=== PATIENT | female | born 1975 | race Caucasian/White ===

== ENCOUNTER → 2016-12-19 | Outpatient (CLI) | payer BC ==
--- NOTE | 2016-12-19 10:36 | ECHOF ---
Referral Reason:R00.0 tachycardia MEASUREMENTS -------- HEIGHT: 170.2 cm WEIGHT: 142.0 kg BP: 126/71 IVSd: 1.5 cm (0.6 - 1.1) LVIDd: 2.9 cm (3.9 - 5.3) LVPWd: 1.3 cm (0.6 - 1.1) IVSs: 1.9 cm LVIDs: 2.3 cm LVPWs: 1.2 cm Ao Diam: 3.3 cm (2.0 - 3.7) AV Cusp: 2.0 cm (1.5 - 2.6) LA Diam: 3.8 cm (2.7 - 3.8) MV EXCURSION: 13.189 mm (> 18.000) MV EF SLOPE: 105 mm/s (70 - 150) EPSS: 0.7 cm MV E Fausto: 0.72 m/s MV DecT: 182 ms MV A Fausto: 0.32 m/s MV E/A Ratio: 2.29 RAP: 5.00 mmHg RVSP: 9.79 mmHg FINDINGS -------- Resting tachycardia (HR>100bpm). This was a technically difficult study with suboptimal views. Morbid Obesity There is moderate concentric left ventricular hypertrophy. Overall left ventricular systolic function is normal with, an EF between 55 - 60 %. The right ventricle is normal in size and function. The left atrium is normal in size. The right atrium is normal in size. The aortic valve is trileaflet, and appears structurally normal. No aortic stenosis or regurgitation. There is trace mitral regurgitation. Trace tricuspid regurgitation present. The right ventricular systolic pressure, as measured by Doppler, is 9.79mmHg. Pulmonic valve appears structurally normal. The aortic root size is normal. The pericardium is normal. CONCLUSIONS -------- 1. Resting tachycardia (HR>100bpm). 2. There is trace mitral regurgitation. 3. Trace tricuspid regurgitation present. 4. The right ventricular systolic pressure, as measured by Doppler, is 9.79mmHg. 5. Pulmonic valve appears structurally normal. 6. The aortic root size is normal. 7. The pericardium is normal. 8. This was a technically difficult study with suboptimal views. 9. Morbid Obesity 10. There is moderate concentric left ventricular hypertrophy. 11. Overall left ventricular systolic function is normal with, an EF between 55 - 60 %. 12. The right ventricle is normal in size and function. 13. The left atrium is normal in size. 14. The right atrium is normal in size. 15. The aortic valve is trileaflet, and appears structurally normal. No aortic stenosis or regurgitation. CHIEF CRUISER: Serena Oreilly RDCS
== END | disposition home or self-care (01) ==
LOC: RADECHMAIN 08:18
PROVIDERS: ATTEND Internal Medicine
DX: I08.1 Rheumatic disorders of both mitral and tricuspid valves (principal); E66.01 Morbid (severe) obesity due to excess calories
CPT/HCPCS: 93306

== ENCOUNTER 2018-11-25 12:53 | Emergency (ER) | payer BC ==
[2018-11-25 13:09] VITALS: BP 149/73; PULSE 112; RESP 16; TEMP 98
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
== END 2018-11-25 14:50 | disposition home or self-care (01) ==
LOC: EC 12:53
DX: S93.401A Sprain of unspecified ligament of right ankle, initial encounter (principal); S63.619A Unspecified sprain of unspecified finger, initial encounter; S09.90XA Unspecified injury of head, initial encounter; S80.811A Abrasion, right lower leg, initial encounter; J45.909 Unspecified asthma, uncomplicated; I10 Essential (primary) hypertension; M10.9 Gout, unspecified; G47.30 Sleep apnea, unspecified; F31.9 Bipolar disorder, unspecified; F41.9 Anxiety disorder, unspecified; Z88.0 Allergy status to penicillin; Z88.1 Allergy status to other antibiotic agents; Z88.2 Allergy status to sulfonamides; Z88.8 Allergy status to other drugs, medicaments and biological substances; Z79.1 Long term (current) use of non-steroidal anti-inflammatories (NSAID); Z79.899 Other long term (current) drug therapy; Z99.89 Dependence on other enabling machines and devices; Z86.69 Personal history of other diseases of the nervous system and sense organs; W01.0XXA Fall on same level from slipping, tripping and stumbling without subsequent striking against object, initial encounter; W20.8XXA Other cause of strike by thrown, projected or falling object, initial encounter; Y93.89 Activity, other specified; Y92.89 Other specified places as the place of occurrence of the external cause
CPT/HCPCS: 70450; 72125; 99284

== ENCOUNTER → 2020-04-10 | Outpatient (CLI) | payer BC | END | disposition home or self-care (01) | LOC: LABWHC1 13:11 | PROVIDERS: ATTEND Internal Medicine | DX: R70.0 Elevated erythrocyte sedimentation rate (principal) | CPT/HCPCS: 36415; 82088; 82550 ==

== ENCOUNTER → 2020-06-15 | Outpatient (CLI) | payer MEDICARE ==
[2020-06-15 14:42] LABS: African American GFR (CKD) >90 (>60 ml/min/1.73 sqM); Blood Urea Nitrogen 17 mg/dL (7-17); Non-African American GFR(CKD) 84 (>60 ml/min/1.73 sqM)
--- NOTE | 2020-06-15 16:26 | CT ---
EXAMINATION TYPE: CT ChestAbdPelvis w con DATE OF EXAM: 06/15/2020 COMPARISON: 10/15/2015 HISTORY: c/o body aches and night sweats CT DLP: 3088.6 mGycm CONTRAST: CT scan of the chest, abdomen and pelvis is performed with Oral Contrast and with IV Contrast, patien t injected with 100 mL of Isovue 300. CT Chest: LUNGS: The lungs are clear and free of infiltrate or atelectasis. No pulmonary nodule or mass is det ected. No pleural effusion or CT evidence of interstitial lung disease. MEDIASTINUM: Thoracic aorta is of normal caliber. The heart is not enlarged. No evidence for media stinal mass or adenopathy. HILAR STRUCTURES: No evidence for mass. No hilar adenopathy is appreciated. OTHER: No significant abnormality. CONTRAST CT ABDOMEN AND PELVIS FINDINGS: LIVER/GB: The gallbladder is surgically absent. No space occupying hepatic lesion. Biliary tree is of normal caliber. PANCREAS: No inflammation. No distinct mass. SPLEEN: No splenic enlargement. No lesion seen. ADRENALS: No nodule. No thickening. KIDNEYS/BLADDER: No hydronephrosis. No nephrolithiasis. No disctinct renal mass. BOWEL: Normal appendix. Normal bowel caliber. No inflammation. GENITAL ORGANS: Bulky appearing uterus. The consider pelvic ultrasound for further evaluation. Small ovarian hypoattenuating lesion measuring 1.4 cm may reflect a follicular cysts. Right ovary is unrema rkable. No free fluid evident. LYMPH NODES: No greater than 1cm abdominal or pelvic lymph nodes are appreciated. AORTA: No significant abnormality. OSSEOUS STRUCTURES: No significant abnormality is seen. OTHER: No significant additional abnormality is seen. IMPRESSION: 1. Bulky appearing uterus. The consider pelvic ultrasound for further evaluation.
== END | disposition home or self-care (01) ==
LOC: RADCTMAIN 14:02
PROVIDERS: ATTEND Internal Medicine
DX: N85.2 Hypertrophy of uterus (principal); R61 Generalized hyperhidrosis
CPT/HCPCS: 82565; 84520; 71260; 74177; 36415; Q9967

== ENCOUNTER → 2020-07-05 | Outpatient (CLI) | payer MEDICARE ==
[2020-07-05 22:33] LABS: Basophils # (A) 0.08 X 10*3/uL (0.00-0.10); Basophils % (A) 0.9 %; Eosinophils # (A) 0.12 X 10*3/uL (0.04-0.35); Eosinophils % (A) 1.3 %; HCT 38.4 % (37.2-46.3); HGB 11.9 g/dL (12.0-15.0); Lymphocytes # (A) 2.78 X 10*3/uL (0.90-5.00); Lymphocytes % (A) 31.1 %; MCH 28.6 pg (27.0-32.0); MCV 92.3 fL (80.0-97.0); Monocytes # (A) 0.48 X 10*3/uL (0.20-1.00); Monocytes % (A) 5.4 %; Neutrophils # (A) 5.42 X 10*3/uL (1.80-7.70); Neutrophils % (A) 60.6 %; Platelet Count 276 X 10*3/uL (140-440); RBC 4.16 X 10*6/uL (4.10-5.20); RDW 14.4 % (11.5-14.5); WBC 8.94 X 10*3/uL (4.50-10.00)
[2020-07-06 01:23] LABS: African American GFR (CKD) 102.5 (60.0-200.0); Albumin 4.4 g/dL (3.80-4.90); Albumin/Globulin Ratio 2.44 (1.60-3.17); Anion Gap 9.9 mmol/L (4.00-12.00); BUN/Creat Ratio 18.75 Ratio (12.00-20.00); C Reactive Protein 2.2 mg/dL (0.0-0.8); Calcium 10.1 mg/dL (8.7-10.3); Carbon Dioxide 27.1 mmol/L (21.6-31.8); Globulin 1.8 g/dL (1.6-3.3); Non-African American GFR(CKD) 88.4 (60.0-200.0); Potassium 4.5 mmol/L (3.5-5.5); Total Bilirubin 0.5 mg/dL (0.3-1.2); Total Protein 6.2 g/dL (6.2-8.2)
[2020-07-06 01:30] LABS: T4, Free (Free Thyroxine) 1.1 ng/dL (0.80-1.80)
[2020-07-06 03:43] LABS: Erythrocyte Sedimentation Rate 41 mm/Hr (0-20)
== END | disposition home or self-care (01) ==
LOC: LABWHC1 12:31
PROVIDERS: ATTEND Internal Medicine
DX: M79.7 Fibromyalgia (principal); R61 Generalized hyperhidrosis
CPT/HCPCS: 36415; 80053; 82550; 84439; 84443; 85025; 85652; 86038; 86140

== ENCOUNTER → 2020-07-07 | Outpatient (CLI) | payer MEDICARE ==
--- NOTE | 2020-07-07 19:02 | US ---
EXAMINATION TYPE: US pelvis complete transvag DATE OF EXAM: 07/07/2020 COMPARISON: CT CLINICAL HISTORY: R52 Generalized pain. Pt had recent abnormal CT TECHNIQUE: Transvaginal (TV) and Transabdominal (TA) . Transabdominal sonographic images of the pel vis were acquired. Transvaginal sonographic images were medically necessary to better assess the fol lowing anatomy: Ovaries Date of LMP: 06/24/2020 EXAM MEASUREMENTS: Uterus: 12.4 x 4.7 x 5.8 cm Endometrial Stripe: 0.9 cm Right Ovary: Unable to visualize Left Ovary: 5.8 x 4.0 x 3.5 cm Severely, morbidly obese pt, difficult exam, TV images were not supplemental 1. Uterus: Anteverted Heterogeneous, Nabothian cyst 2. Endometrium: wnl 3. Right Ovary: Obscured by overlying bowel gas 4. Left Ovary: Cyst with septation= 4.3 x 3.0 x 3.3 cm 5. Bilateral Adnexa: wnl 6. Posterior cul-de-sac: wnl IMPRESSION: 1. Right ovary could not be identified. Left ovary appears enlarged with a septated cystic mass measu ring 4.3 cm. This could represent a septated simple cysts. Cystic neoplasm is not excluded. Recommend short-term follow-up to resolution within 6 weeks. 2. Nonspecific heterogeneity involving the uterine body. No discrete fibroids seen.
== END | disposition home or self-care (01) ==
LOC: RADUSWWP 16:16
PROVIDERS: ATTEND Family Medicine
DX: N83.292 Other ovarian cyst, left side (principal); R93.89 Abnormal findings on diagnostic imaging of other specified body structures
CPT/HCPCS: 76830; 76856

== ENCOUNTER → 2020-10-06 | Outpatient (CLI) | payer MEDICARE ==
[2020-10-07 01:18] LABS: Gliadin AB IgA, Deaminated NEGATIVE (NEGATIVE); Gliadin AB IgA, Unit <0.2 U/mL; Gliadin AB IgG, Deaminated NEGATIVE (NEGATIVE)
== END | disposition home or self-care (01) ==
LOC: LABWHC1 14:32
PROVIDERS: ATTEND Nurse Practitioner
DX: R19.4 Change in bowel habit (principal)
CPT/HCPCS: 36415; 83516

== ENCOUNTER 2021-01-23 22:20 | Emergency (ER) | payer MEDICARE ==
[2021-01-23 22:46] VITALS: TEMP 98.8
[2021-01-23] MEDS ORDERED: MORPHINE SULFATE 4 MG/ML SYRINGE IV STA (23:49)
[2021-01-23] MEDS ORDERED: SODIUM CHLORIDE 0.9% 1,000 ML IV STA (23:49)
--- NOTE | 2021-01-24 00:26 | ED ---
General Adult HPI - General Chief complaint: Abdominal Pain Stated complaint: Abdominal Pain Time Seen by Provider: 01/23/21 23:37 Source: patient, family, RN notes reviewed Mode of arrival: ambulatory - History of Present Illness Initial comments: 45-year-old female With a past medical history of fibromyalgia, GERD, diabetes mellitus, hypertension, cholecystectomy presents to the emergency room for a chief complaint of abdominal pain. Patient states she bent over to pick sending up today and felt the pain suddenly in her right upper quadrant. States this has happened before when bending over but usually it goes away and today it did not. Patient denies nausea or vomiting. Denies diarrhea. Denies fevers.Patient has no other complaints at this time including shortness of breath, chest pain, nausea or vomiting, headache, or visual changes. - Related Data Home Medications Medication Instructions Recorded Confirmed Allopurinol [Zyloprim] 300 mg PO HS 08/11/14 11/25/18 clonazePAM [KlonoPIN] 1 mg PO TID 08/11/14 11/25/18 lamoTRIgine [LaMICtal] 200 mg PO QAM 08/11/14 11/25/18 Spironolact/Hydrochlorothiazid 1 tab PO DAILY 08/12/14 11/25/18 [Spironolactone-Hctz 25-25 Tab] lisinopriL [Lisinopril] 5 mg PO QAM 09/05/15 11/25/18 Albuterol Sulfate [Proair Hfa] 1 - 2 puff INHALATION RT-Q6H PRN 10/15/15 11/25/18 Cyclobenzaprine [Flexeril] 10 mg PO TID 03/13/18 11/25/18 HYDROcodone/APAP 5-325MG [[place] 1 tab PO DAILY PRN 03/13/18 11/25/18 5-325] Melatonin 20 mg PO HS 03/13/18 11/25/18 traZODone HCL 300 mg PO HS 03/13/18 11/25/18 traZODone HCL [Desyrel] 100 mg PO DAILY PRN 03/13/18 11/25/18 Albuterol Nebulized [Ventolin 2.5 mg INHALATION RT-Q4H PRN 11/25/18 11/25/18 Nebulized] Etodolac [Lodine] 500 mg PO BID 11/25/18 11/25/18 Metoprolol Succinate (ER) [Toprol 100 mg PO DAILY 11/25/18 11/25/18 Xl] Polyethylene Glycol 3350 [Miralax] 17 gm PO DAILY 11/25/18 11/25/18 diphenhydrAMINE [Benadryl] 50 mg PO HS 11/25/18 11/25/18 Allergies Allergy/AdvReac Type Severity Reaction Status Date / Time Penicillins Allergy Rash/Hives Verified 01/23/21 22:44 Sulfa (Sulfonamide Allergy Rash/Hives Verified 01/23/21 22:44 Antibiotics) bacitracin [From Cortisporin] AdvReac perforated Verified 01/23/21 22:44 eardrum bacitracin zinc AdvReac perforated Verified 01/23/21 22:44 [From Cortisporin] eardrum hydrocortisone AdvReac perforated Verified 01/23/21 22:44 [From Cortisporin] eardrum neomycin [From Cortisporin] AdvReac perforated Verified 01/23/21 22:44 eardrum neomycin sulfate AdvReac perforated Verified 01/23/21 22:44 [From Cortisporin] eardrum polymyxin B AdvReac perforated Verified 01/23/21 22:44 [From Cortisporin] eardrum polymyxin B sulfate AdvReac perforated Verified 01/23/21 22:44 [From Cortisporin] eardrum Review of Systems ROS Statement: Those systems with pertinent positive or pertinent negative responses have been documented in the HPI. ROS Other: All systems not noted in ROS Statement are negative. Past Medical History Past Medical History: Asthma, Diabetes Mellitus, Fibromyalgia, GERD/Reflux, Hypertension, Sleep Apnea/CPAP/BIPAP Additional Past Medical History / Comment(s): uses CPAP, hiatal hernia, gout,, states , checks blood sugar occasionally, watches diet, migraines, anklying spondolisis History of Any Multi-Drug Resistant Organisms: ESBL Date of last positivie culture/infection: 03/13/18 MDRO Source:: ESBL URINE Past Surgical History: Back Surgery, Section, Cholecystectomy, Tonsillectomy Additional Past Surgical History / Comment(s): gastric surg- eli Past Anesthesia/Blood Transfusion Reactions: No Reported Reaction Past Psychological History: Anxiety, Bipolar Past Alcohol Use History: Occasional Past Drug Use History: None Reported - Past Family History Father Family Medical History: Coronary Artery Disease (CAD), Diabetes Mellitus Mother Family Medical History: No Reported History General Exam General appearance: alert, in no apparent distress Head exam: Present: atraumatic Eye exam: Present: normal appearance, PERRL, EOMI. Absent: scleral icterus, conjunctival injection ENT exam: Present: normal exam, mucous membranes moist Neck exam: Present: normal inspection, full ROM. Absent: tenderness Respiratory exam: Present: normal lung sounds bilaterally. Absent: respiratory distress, wheezes Cardiovascular Exam: Present: regular rate, normal rhythm, normal heart sounds GI/Abdominal exam: Present: soft, tenderness (Mild upper abdominal tenderness), normal bowel sounds. Absent: distended Course Vital Signs 01/23/21 22:40 Temperature 98.8 F Pulse Rate 85 Respiratory 20 Rate Blood Pressure 174/85 O2 Sat by Pulse 100 Oximetry Medical Decision Making - Medical Decision Making Vitals are stable. Patient is well-appearing. Patient does have some mild upper abdominal tenderness on exam. No guarding or rebound. No masses or hernias. CT showed a left ovarian cysts that are increased compared to old exam from May. Normal appendix. No renal stone or obstruction. Patient was given pain medication and did have improvement in symptoms. At this time patient can be discharged home to follow up with primary care. She'll return here for any worsening symptoms. - Lab Data Result diagrams: 01/24/21 00:21 01/24/21 00:21 Lab Results 01/24/21 01/24/21 01/24/21 Range/Units 00: 00: 00:21 WBC 9.9 (3.8-10.6) k/uL RBC 4.54 (3.80-5.40) m/uL Hgb 13.6 (11.4-16.0) gm/dL Hct 42.3 (34.0-46.0) % MCV 93.1 (80.0-100.0) fL MCH 30.0 (25.0-35.0) pg MCHC 32.3 (31.0-37.0) g/dL RDW 13.9 (11.5-15.5) % Plt Count 236 (150-450) k/uL MPV 7.8 Neutrophils % 70 % Lymphocytes % 22 % Monocytes % 5 % Eosinophils % 1 % Basophils % 1 % Neutrophils # 6.9 (1.3-7.7) k/uL Lymphocytes # 2.2 (1.0-4.8) k/uL Monocytes # 0.5 (0-1.0) k/uL Eosinophils # 0.1 (0-0.7) k/uL Basophils # 0.1 (0-0.2) k/uL Sodium 138 (137-145) mmol/L Potassium 4.6 (3.5-5.1) mmol/L Chloride 105 (98-107) mmol/L Carbon Dioxide 25 (22-30) mmol/L Anion Gap 8 mmol/L BUN 17 (7-17) mg/dL Creatinine 0.83 (0.52-1.04) mg/dL Est GFR (CKD-EPI)AfAm >90 (>60 ml/min/1.73 sqM) Est GFR (CKD-EPI)NonAf 85 (>60 ml/min/1.73 sqM) Glucose 108 H (74-99) mg/dL Plasma Lactic Acid Pedro (0.7-2.0) mmol/L Calcium 10.2 (8.4-10.2) mg/dL Total Bilirubin 0.5 (0.2-1.3) mg/dL AST 20 (14-36) U/L ALT 16 (4-34) U/L Alkaline Phosphatase 54 (38-126) U/L Total Protein 6.7 (6.3-8.2) g/dL Albumin 4.1 (3.5-5.0) g/dL Amylase 54 (30-110) U/L Lipase 155 (23-300) U/L Urine Color Light Yellow Urine Appearance Clear (Clear) Urine pH 5.5 (5.0-8.0) Ur Specific [place] 1.015 (1.001-1.035) Urine Protein Negative (Negative) Urine Glucose (UA) Negative (Negative) Urine Ketones Negative (Negative) Urine Blood Negative (Negative) Urine Nitrite Negative (Negative) Urine Bilirubin Negative (Negative) Urine Urobilinogen <2.0 (<2.0) mg/dL Ur Leukocyte Esterase Negative (Negative) Urine HCG, Qual (Not Detectd) 01/24/21 01/24/21 Range/Units 00:21 00:21 WBC (3.8-10.6) k/uL RBC (3.80-5.40) m/uL Hgb (11.4-16.0) gm/dL Hct (34.0-46.0) % MCV (80.0-100.0) fL MCH (25.0-35.0) pg MCHC (31.0-37.0) g/dL RDW (11.5-15.5) % Plt Count (150-450) k/uL MPV Neutrophils % % Lymphocytes % % Monocytes % % Eosinophils % % Basophils % % Neutrophils # (1.3-7.7) k/uL Lymphocytes # (1.0-4.8) k/uL Monocytes # (0-1.0) k/uL Eosinophils # (0-0.7) k/uL Basophils # (0-0.2) k/uL Sodium (137-145) mmol/L Potassium (3.5-5.1) mmol/L Chloride (98-107) mmol/L Carbon Dioxide (22-30) mmol/L Anion Gap mmol/L BUN (7-17) mg/dL Creatinine (0.52-1.04) mg/dL Est GFR (CKD-EPI)AfAm (>60 ml/min/1.73 sqM) Est GFR (CKD-EPI)NonAf (>60 ml/min/1.73 sqM) Glucose (74-99) mg/dL Plasma Lactic Acid Pedro 1.2 (0.7-2.0) mmol/L Calcium (8.4-10.2) mg/dL Total Bilirubin (0.2-1.3) mg/dL AST (14-36) U/L ALT (4-34) U/L Alkaline Phosphatase (38-126) U/L Total Protein (6.3-8.2) g/dL Albumin (3.5-5.0) g/dL Amylase (30-110) U/L Lipase (23-300) U/L Urine Color Urine Appearance (Clear) Urine pH (5.0-8.0) Ur Specific [place] (1.001-1.035) Urine Protein (Negative) Urine Glucose (UA) (Negative) Urine Ketones (Negative) Urine Blood (Negative) Urine Nitrite (Negative) Urine Bilirubin (Negative) Urine Urobilinogen (<2.0) mg/dL Ur Leukocyte Esterase (Negative) Urine HCG, Qual Not Detected (Not Detectd) Disposition Clinical Impression: Abdominal pain Disposition: HOME SELF-CARE Condition: Good Instructions (If sedation given, give patient instructions): Abdominal Pain (ED ) Additional Instructions: Please take Motrin and Tylenol for pain. Follow-up with your doctor. Return to the emergency room for any worsening symptoms. Is patient prescribed a controlled substance at d/c from ED?: No Referrals: Emily Rodriguez MD [Primary Care Provider] - 1-2 days Zach Lim MD [STAFF PHYSICIAN] - 1-2 days Time of Disposition: 01:43
[2021-01-24 00:33] LABS: Basophils # (A) 0.1 k/uL (0-0.2); Basophils % (A) 1 %; Eosinophils # (A) 0.1 k/uL (0-0.7); Eosinophils % (A) 1 %; HCT 42.3 % (34.0-46.0); HGB 13.6 gm/dL (11.4-16.0); Lymphocytes # (A) 2.2 k/uL (1.0-4.8); Lymphocytes % (A) 22 %; MCHC 32.3 g/dL (31.0-37.0); MCV 93.1 fL (80.0-100.0); Mean Platelet Volume 7.8; Monocytes # (A) 0.5 k/uL (0-1.0); Monocytes % (A) 5 %; Neutrophils # (A) 6.9 k/uL (1.3-7.7); Neutrophils % (A) 70 %; Platelet Count 236 k/uL (150-450); RBC 4.54 m/uL (3.80-5.40); RDW 13.9 % (11.5-15.5); WBC 9.9 k/uL (3.8-10.6)
[2021-01-24 00:34] LABS: Appearance,Urine Clear (Clear); Bilirubin,Urine Negative (Negative); Blood,Urine Negative (Negative); Color,Urine Light Yellow; Glucose,Urine (UA) Negative (Negative); Ketones,Urine Negative (Negative); Leukocyte Esterase,Urine Negative (Negative); Nitrite,Urine Negative (Negative); PH, Urine 5.5 (5.0-8.0); Protein,Urine Negative (Negative); Specific Gravity,Urine 1.015 (1.001-1.035); Urobilinogen,Urine <2.0 mg/dL (<2.0)
[2021-01-24 00:48] LABS: ALT 16 U/L (4-34); AST 20 U/L (14-36); African American GFR (CKD) >90 (>60 ml/min/1.73 sqM); Albumin 4.1 g/dL (3.5-5.0); Alkaline Phosphatase 54 U/L (38-126); Amylase 54 U/L (30-110); Anion Gap 8 mmol/L; Blood Urea Nitrogen 17 mg/dL (7-17); Calcium 10.2 mg/dL (8.4-10.2); Carbon Dioxide 25 mmol/L (22-30); Chloride 105 mmol/L (98-107); Glucose 108 mg/dL (74-99); Lipase 155 U/L (23-300); Non-African American GFR(CKD) 85 (>60 ml/min/1.73 sqM); Potassium 4.6 mmol/L (3.5-5.1); Sodium 138 mmol/L (137-145); Total Bilirubin 0.5 mg/dL (0.2-1.3); Total Protein 6.7 g/dL (6.3-8.2)
--- NOTE | 2021-01-24 01:34 | CT ---
EXAMINATION TYPE: CT abdomen pelvis w con DATE OF EXAM: 01/24/2021 COMPARISON: 06/15/2020 HISTORY: Rt. abdomen and flank pain. prior on PACS. hx: , back, cholecystectomy, gastric sx . CT DLP: 2872.2 mGycm Automated exposure control for dose reduction was used. CONTRAST: Performed with IV Contrast, patient injected with 100ml mL of Isovue 300. Images obtained from the diaphragm to the floor the pelvis with IV contrast. The lung bases are clear. There is no pleural effusion. Heart size is normal. There is no pericardial effusion. There are surgical clips at the gastric fundus. There are clips from cholecystectomy. Live r spleen pancreas appear intact. The bile ducts are not dilated. There is no adrenal mass. Kidneys show satisfactory contrast opacification. There is no hydronephrosi s. Delayed images show normal renal excretion. Ureters are not dilated. There is no retroperitoneal a denopathy. Bladder distends smoothly. There is no inguinal hernia. There is no free fluid in the pelv is. Uterus is anteverted. There is linear metallic density anterior to the uterine fundus. This could be surgical clips from . Malpositioned IUD is also possible. The lumbar vertebra have normal alignment. There is narrowing of L4-5 disc space with spurring. There is no compression fracture. Bony pelvis is intact. Hip joints are intact. There is no mesenteric edema. There is no ascites or free air. There is no bowel obstruction. Appendi x is lateral and appears normal. There is 2 cysts on the left ovary that measure 3 cm. IMPRESSION: Left ovarian cysts are increased compared to old exam. Normal appendix. No renal stone or obstruction .
[2021-01-24] MEDS ORDERED: HYDROmorphone 0.5 MG/0.5 ML SYRINGE IVP STA (02:05)
[2021-01-24 02:31] VITALS: BP 147/81; PULSE 74; RESP 18
== END 2021-01-24 02:31 | disposition home or self-care (01) ==
LOC: EC 22:20
DX: R10.11 Right upper quadrant pain (principal); J45.909 Unspecified asthma, uncomplicated; E11.9 Type 2 diabetes mellitus without complications; M79.7 Fibromyalgia; G43.909 Migraine, unspecified, not intractable, without status migrainosus; I10 Essential (primary) hypertension; Z90.49 Acquired absence of other specified parts of digestive tract; Z79.899 Other long term (current) drug therapy; Z88.0 Allergy status to penicillin; Z88.2 Allergy status to sulfonamides; Z88.1 Allergy status to other antibiotic agents; Z88.8 Allergy status to other drugs, medicaments and biological substances
CPT/HCPCS: 36415; 80053; 82150; 83605; 83690; 85025; 81003; 81025; 74177; 99284; 96374; 96375; 96361; J2270; J1170

== ENCOUNTER → 2021-03-15 | Outpatient (CLI) | payer MEDICARE ==
--- NOTE | 2021-03-19 10:47 | MM ---
Reason for exam: screening (asymptomatic). Last mammogram was performed 13 years ago. History: Family history of breast cancer in maternal grandmother. Took hormonal contraceptives for 13 years beginning at age 17. Physical Findings: A clinical breast exam by your physician is recommended on an annual basis and results should be correlated with mammographic findings. MG 3D Screening Mammo W/Cad Bilateral CC and MLO view(s) were taken. Prior study comparison: November 15, 2014, mammogram, performed at [facility]. There are scattered fibroglandular densities. There are benign appearing round calcifications bilaterally. There is chronic nodularity in the right breast. There is no discrete abnormality. ASSESSMENT: Benign, BI-RAD 2 RECOMMENDATION: Routine screening mammogram of both breasts in 1 year.
== END | disposition home or self-care (01) ==
LOC: RADMAMWWP 13:03
PROVIDERS: ATTEND Family Medicine
DX: Z12.31 Encounter for screening mammogram for malignant neoplasm of breast (principal)
CPT/HCPCS: 77063; 77067

== ENCOUNTER 2021-10-30 20:01 | Emergency (ER) | payer MEDICARE ==
[2021-10-30 20:26] VITALS: RESP 18; TEMP 97.3
[2021-10-30] MEDS ORDERED: ONDANSETRON 4 MG/2 ML VIAL IVP STA (21:07)
[2021-10-30] MEDS ORDERED: SODIUM CHLORIDE 0.9% 1,000 ML IV STA (21:07)
--- NOTE | 2021-10-30 21:12 | ED ---
General Adult HPI - General Chief complaint: Extremity Problem,Nontraumatic Stated complaint: Left Leg Pain and Swelling Time Seen by Provider: 10/30/21 20:53 Source: patient, RN notes reviewed Mode of arrival: ambulatory Limitations: no limitations - History of Present Illness Initial comments: 45-year-old female presents to the emergency department for evaluation of bilateral lower extremity edema, left side worse than right, onset today. States she has a history of ankylosing spondylitis and takes Humira injections. Reports she typically gets mild swelling of the lower extremities in the week prior to the next injection, however reports this pain is quite localized to the left popliteal region extending to the anterior aspect of the leg. This area is warm and tender to touch. Also has mild nausea and urinary frequency. States with her history of fibromyalgia urinary frequency is not uncommon for her, however reports that she is prone to developing asymptomatic UTIs that progress quickly. Patient denies any recent travel or prolonged immobilization. Noted fever, chills, dizziness, headache, chest pain, shortness of breath, abdominal pain, vomiting, diarrhea, or hematuria. - Related Data Home Medications Medication Instructions Recorded Confirmed allopurinoL [Zyloprim] 300 mg PO HS 08/11/14 11/25/18 clonazePAM [KlonoPIN] 1 mg PO TID 08/11/14 11/25/18 lamoTRIgine [LaMICtal] 200 mg PO QAM 08/11/14 11/25/18 Spironolact/Hydrochlorothiazid 1 tab PO DAILY 08/12/14 11/25/18 [Spironolactone-Hctz 25-25 Tab] lisinopriL [Lisinopril] 5 mg PO QAM 09/05/15 11/25/18 Albuterol Sulfate [Proair Hfa] 1 - 2 puff INHALATION RT-Q6H PRN 10/15/15 11/25/18 Cyclobenzaprine [Flexeril] 10 mg PO TID 03/13/18 11/25/18 HYDROcodone/APAP 5-325MG [[place] 1 tab PO DAILY PRN 03/13/18 11/25/18 5-325] Melatonin [Melatonin ER] 20 mg PO HS 03/13/18 11/25/18 traZODone HCL 300 mg PO HS 03/13/18 11/25/18 traZODone HCL [Desyrel] 100 mg PO DAILY PRN 03/13/18 11/25/18 Albuterol Nebulized [Ventolin 2.5 mg INHALATION RT-Q4H PRN 11/25/18 11/25/18 Nebulized] Etodolac [Lodine] 500 mg PO BID 11/25/18 11/25/18 Metoprolol Succinate (ER) [Toprol 100 mg PO DAILY 11/25/18 11/25/18 Xl] diphenhydrAMINE [Benadryl] 50 mg PO HS 11/25/18 11/25/18 polyethylene glycoL 3350 [Miralax] 17 gm PO DAILY 11/25/18 11/25/18 Previous Rx's Medication Instructions Recorded Cephalexin [Keflex] 500 mg PO Q6HR #40 cap 10/31/21 Ondansetron Odt [Zofran Odt] 4 mg PO Q8HR PRN #10 tab 10/31/21 Allergies Allergy/AdvReac Type Severity Reaction Status Date / Time Penicillins Allergy Rash/Hives Verified 10/30/21 20:27 Sulfa (Sulfonamide Allergy Rash/Hives Verified 10/30/21 20:27 Antibiotics) bacitracin [From Cortisporin] AdvReac perforated Verified 10/30/21 20:27 eardrum bacitracin zinc AdvReac perforated Verified 10/30/21 20:27 [From Cortisporin] eardrum hydrocortisone AdvReac perforated Verified 10/30/21 20:27 [From Cortisporin] eardrum metformin AdvReac Nausea & Verified 10/30/21 20:27 Vomiting & Diarrhea neomycin [From Cortisporin] AdvReac perforated Verified 10/30/21 20:27 eardrum neomycin sulfate AdvReac perforated Verified 10/30/21 20:27 [From Cortisporin] eardrum polymyxin B AdvReac perforated Verified 10/30/21 20:27 [From Cortisporin] eardrum polymyxin B sulfate AdvReac perforated Verified 10/30/21 20:27 [From Cortisporin] eardrum Review of Systems ROS Statement: Those systems with pertinent positive or pertinent negative responses have been documented in the HPI. ROS Other: All systems not noted in ROS Statement are negative. Past Medical History Past Medical History: Asthma, Diabetes Mellitus, Fibromyalgia, GERD/Reflux, Hypertension, Sleep Apnea/CPAP/BIPAP Additional Past Medical History / Comment(s): uses CPAP, hiatal hernia, gout,, states , checks blood sugar occasionally, watches diet, migraines, anklying spondolisis History of Any Multi-Drug Resistant Organisms: ESBL Date of last positivie culture/infection: 03/13/18 MDRO Source:: ESBL URINE Past Surgical History: Back Surgery, Section, Cholecystectomy, Tonsillectomy Additional Past Surgical History / Comment(s): gastric surg- eli Past Anesthesia/Blood Transfusion Reactions: No Reported Reaction Past Psychological History: Anxiety, Bipolar Past Alcohol Use History: Occasional Past Drug Use History: None Reported - Past Family History Father Family Medical History: Coronary Artery Disease (CAD), Diabetes Mellitus Mother Family Medical History: No Reported History General Exam Limitations: no limitations (Well-developed, well-nourished female in no acute distress. Initial temperature 97.3, pulse 118, respirations 18, blood pressure 154/89, pulse ox 100% on room air.) General appearance: alert, in no apparent distress Respiratory exam: Present: normal lung sounds bilaterally. Absent: respiratory distress, wheezes, rales, rhonchi, stridor Cardiovascular Exam: Present: regular rate, normal rhythm, normal heart sounds. Absent: systolic murmur, diastolic murmur, rubs, gallop, clicks GI/Abdominal exam: Present: soft, normal bowel sounds. Absent: distended, tenderness, guarding, rebound, rigid Right Hip exam: Present: normal inspection, full ROM. Absent: tenderness, swelling Upper Leg exam: Present: normal inspection, full ROM. Absent: tenderness, swelling Knee exam: Present: normal inspection, full ROM. Absent: tenderness, swelling Lower Leg exam: Present: tenderness (mild tenderness and swelling right lower leg, medial aspect , just inferior to knee), swelling. Absent: erythema, Homans' sign Ankle exam: Present: normal inspection, full ROM Neurovascular tendon exam: Present: no vascular compromise Left Upper Leg exam: Present: normal inspection, full ROM Knee exam: Present: tenderness (localized area of swelling and tenderness inferior to the left knee extending to the popliteal region), swelling Lower Leg exam: Present: erythema. Absent: Homans' sign Ankle exam: Present: normal inspection, full ROM Neurovascular tendon exam: Present: no vascular compromise Neurological exam: Present: alert, oriented X3, CN II-XII intact Psychiatric exam: Present: normal affect, normal mood Course Vital Signs 10/30/21 10/31/21 20:23 01:00 Temperature 97.3 F L 97.3 F L Pulse Rate 118 H 87 Respiratory 18 18 Rate Blood Pressure 154/89 145/90 O2 Sat by Pulse 100 100 Oximetry Medical Decision Making - Medical Decision Making 45-year-old obese female with a past medical history of fibromyalgia and ankylosing spondylitis presents to the emergency department for evaluation of mu ltiple complaints including bilateral lower extremity swelling and tenderness, left side worse than right, nausea, and urinary frequency. Upon exam, patient does have a localized area of swelling on the left lower extremity that extends through the popliteal space. She has tenderness upon palpation. Distal sensation and pulses are intact. She has an area of tenderness on the right lower extremity that is also mildly edematous and tender to touch. Patient was given Zofran for nausea. Venous Doppler study was obtained and was negative. Laboratory studies were unremarkable. I am concerned that this is a developing cellulitis therefore patient will be started on Keflex and encouraged to follow up with her PCP did recommend she contact her director private music therapy agency regarding continuation of Humira and she is due for her next dose in 24 hours. Return parameters were discussed in detail. Patient verbalizes understanding and agrees with this plan. Attending: Irma. - Lab Data Result diagrams: 10/30/21 21:32 10/30/21 21:32 Lab Results 10/30/21 10/30/21 10/30/21 Range/Units 21:32 21:32 21:32 WBC 6.6 (3.8-10.6) k/uL RBC 4.01 (3.80-5.40) m/uL Hgb 12.5 (11.4-16.0) gm/dL Hct 37.1 (34.0-46.0) % MCV 92.6 (80.0-100.0) fL MCH 31.1 (25.0-35.0) pg MCHC 33.6 (31.0-37.0) g/dL RDW 13.3 (11.5-15.5) % Plt Count 207 (150-450) k/uL MPV 7.4 Neutrophils % 52 % Lymphocytes % 37 % Monocytes % 6 % Eosinophils % 1 % Basophils % 1 % Neutrophils # 3.5 (1.3-7.7) k/uL Lymphocytes # 2.5 (1.0-4.8) k/uL Monocytes # 0.4 (0-1.0) k/uL Eosinophils # 0.1 (0-0.7) k/uL Basophils # 0.1 (0-0.2) k/uL PT (9.0-12.0) sec INR (<1.2) APTT (22.0-30.0) sec Sodium 141 (137-145) mmol/L Potassium 4.1 (3.5-5.1) mmol/L Chloride 104 (98-107) mmol/L Carbon Dioxide 29 (22-30) mmol/L Anion Gap 8 mmol/L BUN 11 (7-17) mg/dL Creatinine 1.03 (0.52-1.04) mg/dL Est GFR (CKD-EPI)AfAm 75 (>60 ml/min/1.73 sqM) Est GFR (CKD-EPI)NonAf 65 (>60 ml/min/1.73 sqM) Glucose 92 (74-99) mg/dL Calcium 9.6 (8.4-10.2) mg/dL Total Bilirubin 0.6 (0.2-1.3) mg/dL AST 21 (14-36) U/L ALT 16 (4-34) U/L Alkaline Phosphatase 41 (38-126) U/L Total Protein 7.0 (6.3-8.2) g/dL Albumin 4.6 (3.5-5.0) g/dL Urine Color Light Yellow Urine Appearance Clear (Clear) Urine pH 6.0 (5.0-8.0) Ur Specific [place] 1.004 (1.001-1.035) Urine Protein Negative (Negative) Urine Glucose (UA) Negative (Negative) Urine Ketones Negative (Negative) Urine Blood Negative (Negative) Urine Nitrite Negative (Negative) Urine Bilirubin Negative (Negative) Urine Urobilinogen <2.0 (<2.0) mg/dL Ur Leukocyte Esterase Negative (Negative) 10/30/21 Range/Units 22:24 WBC (3.8-10.6) k/uL RBC (3.80-5.40) m/uL Hgb (11.4-16.0) gm/dL Hct (34.0-46.0) % MCV (80.0-100.0) fL MCH (25.0-35.0) pg MCHC (31.0-37.0) g/dL RDW (11.5-15.5) % Plt Count (150-450) k/uL MPV Neutrophils % % Lymphocytes % % Monocytes % % Eosinophils % % Basophils % % Neutrophils # (1.3-7.7) k/uL Lymphocytes # (1.0-4.8) k/uL Monocytes # (0-1.0) k/uL Eosinophils # (0-0.7) k/uL Basophils # (0-0.2) k/uL PT 10.7 (9.0-12.0) sec INR 1.0 (<1.2) APTT 25.0 (22.0-30.0) sec Sodium (137-145) mmol/L Potassium (3.5-5.1) mmol/L Chloride (98-107) mmol/L Carbon Dioxide (22-30) mmol/L Anion Gap mmol/L BUN (7-17) mg/dL Creatinine (0.52-1.04) mg/dL Est GFR (CKD-EPI)AfAm (>60 ml/min/1.73 sqM) Est GFR (CKD-EPI)NonAf (>60 ml/min/1.73 sqM) Glucose (74-99) mg/dL Calcium (8.4-10.2) mg/dL Total Bilirubin (0.2-1.3) mg/dL AST (14-36) U/L ALT (4-34) U/L Alkaline Phosphatase (38-126) U/L Total Protein (6.3-8.2) g/dL Albumin (3.5-5.0) g/dL Urine Color Urine Appearance (Clear) Urine pH (5.0-8.0) Ur Specific [place] (1.001-1.035) Urine Protein (Negative) Urine Glucose (UA) (Negative) Urine Ketones (Negative) Urine Blood (Negative) Urine Nitrite (Negative) Urine Bilirubin (Negative) Urine Urobilinogen (<2.0) mg/dL Ur Leukocyte Esterase (Negative) - Radiology Data Radiology results: report reviewed, image reviewed Venous Doppler study of bilateral lower extremities was obtained. Report was reviewed in its entirety. Impression per Dr. Martin is no evidence of deep vein thrombosis in both legs. Disposition Clinical Impression: Lower extremity cellulitis Disposition: HOME SELF-CARE Condition: Stable Instructions (If sedation given, give patient instructions): Cellulitis (ED) Additional Instructions: Take antibiotic as prescribed. Zofran is for nausea. May take Tylenol or Motrin if needed for discomfort. Follow-up with your PCP for recheck by the end of the week. Call your director private music therapy agency to discuss your Humira. Return to the emergency department with any new, worsening, or concerning symptoms as discussed. Prescriptions: Cephalexin [Keflex] 500 mg PO Q6HR #40 cap Ondansetron Odt [Zofran Odt] 4 mg PO Q8HR PRN #10 tab PRN Reason: Nausea Is patient prescribed a controlled substance at d/c from ED?: No Referrals: Emily Rodriguez MD [Primary Care Provider] - 1-2 days Time of Disposition: 00:42
[2021-10-30 22:05] LABS: Appearance,Urine Clear (Clear); Bilirubin,Urine Negative (Negative); Blood,Urine Negative (Negative); Color,Urine Light Yellow; Glucose,Urine (UA) Negative (Negative); Ketones,Urine Negative (Negative); Leukocyte Esterase,Urine Negative (Negative); Nitrite,Urine Negative (Negative); Protein,Urine Negative (Negative); Specific Gravity,Urine 1.004 (1.001-1.035); Urobilinogen,Urine <2.0 mg/dL (<2.0)
[2021-10-30 22:07] LABS: Basophils # (A) 0.1 k/uL (0-0.2); Basophils % (A) 1 %; Eosinophils # (A) 0.1 k/uL (0-0.7); Eosinophils % (A) 1 %; HCT 37.1 % (34.0-46.0); HGB 12.5 gm/dL (11.4-16.0); Lymphocytes # (A) 2.5 k/uL (1.0-4.8); Lymphocytes % (A) 37 %; MCH 31.1 pg (25.0-35.0); MCHC 33.6 g/dL (31.0-37.0); MCV 92.6 fL (80.0-100.0); Mean Platelet Volume 7.4; Monocytes # (A) 0.4 k/uL (0-1.0); Monocytes % (A) 6 %; Neutrophils # (A) 3.5 k/uL (1.3-7.7); Neutrophils % (A) 52 %; Platelet Count 207 k/uL (150-450); RBC 4.01 m/uL (3.80-5.40); RDW 13.3 % (11.5-15.5); WBC 6.6 k/uL (3.8-10.6)
[2021-10-30 22:16] LABS: Albumin 4.6 g/dL (3.5-5.0); Calcium 9.6 mg/dL (8.4-10.2); Potassium 4.1 mmol/L (3.5-5.1); Total Bilirubin 0.6 mg/dL (0.2-1.3)
[2021-10-30 22:41] LABS: Prothrombin Time 10.7 sec (9.0-12.0)
--- NOTE | 2021-10-30 23:38 | US ---
EXAMINATION TYPE: US venous doppler duplex LE DATE OF EXAM: 10/30/2021 11:23 PM COMPARISON: NONE CLINICAL HISTORY: pain. Left calf pain and popliteal bruise SIDE PERFORMED: Bilateral TECHNIQUE: The lower extremity deep venous system is examined utilizing real time linear array sonog gemini with graded compression, doppler sonography and color-flow sonography. VESSELS IMAGED: Common Femoral Vein Deep Femoral Vein Greater Saphenous Vein * Femoral Vein Popliteal Vein Small Saphenous Vein * Proximal Calf Veins (* superficial vessels) Right Leg: Negative for DVT Left Leg: Negative for DVT IMPRESSION: No evidence of deep vein thrombosis in both legs.
[2021-10-31] MEDS ORDERED: ONDANSETRON 4 MG/2 ML VIAL IVP STA (00:38)
[2021-10-31] MEDS ORDERED: CEPHALEXIN 500 MG CAP PO STA (00:38)
[2021-10-31 01:30] VITALS: BP 145/90; PULSE 87
== END 2021-10-31 01:31 | disposition home or self-care (01) ==
LOC: EC 20:01
DX: L03.116 Cellulitis of left lower limb (principal); L03.115 Cellulitis of right lower limb; J45.909 Unspecified asthma, uncomplicated; E11.9 Type 2 diabetes mellitus without complications; M79.7 Fibromyalgia; I10 Essential (primary) hypertension; Z88.8 Allergy status to other drugs, medicaments and biological substances; Z88.0 Allergy status to penicillin; Z88.2 Allergy status to sulfonamides; Z88.1 Allergy status to other antibiotic agents; Z79.899 Other long term (current) drug therapy
CPT/HCPCS: 36415; 80053; 85025; 85610; 85730; 81003; 93970; 99284; 96374; 96376; 96361; J2405 ×2

== ENCOUNTER → 2022-02-16 | Outpatient (CLI) | payer MEDICARE ==
[2022-02-16 16:37] LABS: Basophils # (A) 0.07 X 10*3/uL (0.00-0.10); Basophils % (A) 0.8 %; Eosinophils # (A) 0.12 X 10*3/uL (0.04-0.35); Eosinophils % (A) 1.4 %; HCT 37.2 % (37.2-46.3); HGB 11.9 g/dL (12.0-15.0); Immature Grans, Automated 0.2 %; Lymphocytes # (A) 3.07 X 10*3/uL (0.90-5.00); Lymphocytes % (A) 37.1 %; MCH 29.5 pg (27.0-32.0); MCV 92.1 fL (80.0-97.0); Mean Platelet Volume 11.5 fL (9.5-12.2); Monocytes # (A) 0.53 X 10*3/uL (0.20-1.00); Monocytes % (A) 6.4 %; NRBC Per 100 WBC 0 /100 WBCS (0.0-0.0); Neutrophils # (A) 4.47 X 10*3/uL (1.80-7.70); Neutrophils % (A) 54.1 %; Platelet Count 239 X 10*3/uL (140-440); RBC 4.04 X 10*6/uL (4.10-5.20); RDW 13.2 % (11.5-14.5); WBC 8.28 X 10*3/uL (4.50-10.00)
[2022-02-16 17:20] LABS: Erythrocyte Sedimentation Rate 8 mm/Hr (0-20)
[2022-02-16 18:04] LABS: C Reactive Protein 0.6 mg/dL (0.00-0.80)
[2022-02-16 18:20] LABS: African American GFR (CKD) 68.8 (60.0-200.0); Albumin 4.3 g/dL (3.8-4.9); Blood Urea Nitrogen 15.4 mg/dL (9.0-27.0); Non-African American GFR(CKD) 59.3 (60.0-200.0)
== END | disposition home or self-care (01) ==
LOC: LABWHC1 10:33
PROVIDERS: ATTEND Internal Medicine Rheumatology
DX: M47.819 Spondylosis without myelopathy or radiculopathy, site unspecified (principal); M46.1 Sacroiliitis, not elsewhere classified
CPT/HCPCS: 36415; 82040; 82565; 84450; 84460; 84520; 85025; 85652; 86140; 86480

== ENCOUNTER → 2022-09-24 | Outpatient (CLI) | payer MEDICARE ==
--- NOTE | 2022-09-25 19:21 | MM ---
Reason for Exam: Screening (asymptomatic). Last mammogram was performed 1 year(s) and 6 month(s) ago. Patient History: Menarche at age 11. First Full-Term at age 25. Perimenopausal. Hormonal Contraceptives, starting at age 17 for 13 years. Maternal grandmother had breast cancer, age 76. Risk Values: Chacha 5 year model risk: 1.0%. NCI Lifetime model risk: 10.2%. Prior Study Comparison: 03/03/2008 Bilateral Diagnostic Mammogram, [facility]. 11/15/2014 Screening Mammogram, [facility]. 03/15/2021 Bilateral Screening Mammogram, [facility]. Tissue Density: The breast tissue is almost entirely fat. Findings: Analyzed By CAD. Unchanged low axillary tail lymph node posterior upper-outer quadrant right breast. Redemonstrated is the group coarse microcalcifications upper outer quadrant left breast. There is no suspicious group of microcalcifications or new suspicious mass in either breast. Overall Assessment: Benign, BI-RAD 2 Management: Screening Mammogram of both breasts in 1 year. . Patient should continue monthly self-breast exams. A clinical breast exam by your physician is recommended on an annual basis. This exam should not preclude additional follow-up of suspicious palpable abnormalities. Note on Chacha scores and lifetime risk: 1. A Chacha score greater than 3% is considered moderate risk. If this is the case, consider specialist referral to assess eligibility for a risk reducing agent. 2. If overall lifetime risk for the development of breast cancer is 20% or higher, the patient may qualify for future screening with alternating mammogram and breast MRI. Electronically signed and approved by: Stephanie Lima M.D. Radiologist
== END | disposition home or self-care (01) ==
LOC: RADMAMWWP 13:12
PROVIDERS: ATTEND Family Medicine
DX: Z12.31 Encounter for screening mammogram for malignant neoplasm of breast (principal); Z80.3 Family history of malignant neoplasm of breast
CPT/HCPCS: 77063; 77067

== ENCOUNTER → 2022-10-21 | Outpatient (CLI) | payer MEDICARE ==
--- NOTE | 2022-10-21 16:15 | US ---
EXAMINATION TYPE: US extremity nonvasc mass LT DATE OF EXAM: 10/21/2022 COMPARISON: NONE CLINICAL INDICATION: Female, 46 years old with history of M67.432 GANGLION, LEFT WRIST; lump lt wrist x 1 month, appeared overnight TECHNIQUE: multiple sonographic images taken of lt wrist FINDINGS: Area of concern corresponds to lipoma vs. fat lobule measuring 7.2x 5.5 x 1.2 cm, discrete borders difficult to detect. IMPRESSION: There is an area of somewhat hyperechoic tissue. To represent subcutaneous tissue. Unclea r given the images provided by bliss press operator if this is a fat containing lesion versus other. Consider further evaluation with MRI. No organizing fluid collection visualized.
== END | disposition home or self-care (01) ==
LOC: RADUSWWP 15:30
PROVIDERS: ATTEND Family Medicine
DX: M67.432 Ganglion, left wrist (principal)

== ENCOUNTER 2023-11-24 11:15 | Observation (INO) | payer MEDICARE ==
[2023-11-24] MEDS: ASPIRIN 81 MG PO STA (11:54)
[2023-11-24] MEDS: SODIUM CHLORIDE 0.9% 1,000 ML IV STA (11:55)
[2023-11-24 12:09] LABS: Basophils # (A) 0.1 k/uL (0-0.2); Basophils % (A) 1 %; Eosinophils # (A) 0.3 k/uL (0-0.7); Eosinophils % (A) 3 %; HCT 41.3 % (34.0-46.0); HGB 13.4 gm/dL (11.4-16.0); Lymphocytes # (A) 1.9 k/uL (1.0-4.8); Lymphocytes % (A) 22 %; MCH 28.9 pg (25.0-35.0); MCHC 32.4 g/dL (31.0-37.0); MCV 89.2 fL (80.0-100.0); Monocytes # (A) 0.5 k/uL (0-1.0); Monocytes % (A) 6 %; Neutrophils # (A) 5.5 k/uL (1.3-7.7); Neutrophils % (A) 65 %; Platelet Count 276 k/uL (150-450); RBC 4.63 m/uL (3.80-5.40); RDW 14.2 % (11.5-15.5); WBC 8.4 k/uL (3.8-10.6)
[2023-11-24] MEDS: LORazepam 2 MG/ML INJ IV STA (12:09)
[2023-11-24 12:15] LABS: INR 0.9 (<1.2); Partial Thromboplastin Time 24.4 sec (22.0-30.0); Prothrombin Time 10.2 sec (10.0-12.5)
[2023-11-24 12:19] LABS: ALT 26 U/L (4-34); AST 29 U/L (14-36); African American GFR (CKD) >90 (>60 ml/min/1.73 sqM); Albumin 4.9 g/dL (3.5-5.0); Alkaline Phosphatase 69 U/L (38-126); Anion Gap 12 mmol/L; Blood Urea Nitrogen 13 mg/dL (7-17); Calcium 10.5 mg/dL (8.4-10.2); Carbon Dioxide 24 mmol/L (22-30); Chloride 105 mmol/L (98-107); Glucose 167 mg/dL (74-99); Magnesium 1.6 mg/dL (1.6-2.3); Non-African American GFR(CKD) 81 (>60 ml/min/1.73 sqM); Potassium 4.8 mmol/L (3.5-5.1); Sodium 141 mmol/L (137-145); Total Bilirubin 0.9 mg/dL (0.2-1.3); Total Protein 7.6 g/dL (6.3-8.2)
--- NOTE | 2023-11-24 12:19 | XR ---
EXAMINATION TYPE: XR chest 2V DATE OF EXAM: 11/24/2023 COMPARISON: NONE HISTORY: Chest pain TECHNIQUE: Frontal and lateral views of the chest are obtained. FINDINGS: There is no focal air space opacity. No evidence for pneumothorax. No pleural effusion. The cardiac silhouette size is within normal limits. The osseous structures are grossly intact. IMPRESSION: 1. No acute cardiopulmonary process.
[2023-11-24 12:26] LABS: NT-Pro-B-Type Natriuretic Pept 27 pg/mL
[2023-11-24 13:05] LABS: Appearance,Urine Clear (Clear); Bilirubin,Urine Negative (Negative); Blood,Urine Negative (Negative); Color,Urine Brown; Glucose,Urine (UA) Negative (Negative); Ketones,Urine Negative (Negative); Leukocyte Esterase,Urine Negative (Negative); Nitrite,Urine Negative (Negative); Protein,Urine Negative (Negative); Specific Gravity,Urine 1.003 (1.001-1.035); Urobilinogen,Urine <2.0 mg/dL (<2.0)
[2023-11-24] MEDS: NITROGLYCERIN SL TABS 0.4 MG TAB SUBLINGUAL STA (14:06)
[2023-11-24] MEDS ORDERED: ONDANSETRON 4 MG/2 ML VIAL IVP PRN (14:53)
[2023-11-24] MEDS ORDERED: NALOXONE 0.4 MG/ML 1 ML VIAL IV PRN (14:53)
--- NOTE | 2023-11-24 14:53 | ED ---
General Adult HPI - General Chief complaint: Chest Pain Stated complaint: Chest pain Time Seen by Provider: 11/24/23 11:35 Source: patient, RN notes reviewed, old records reviewed Mode of arrival: ambulatory Limitations: no limitations - History of Present Illness Initial comments: Patient is a 48-year-old female who presents emergency department complaining of chest pain. States it is in the left side of her chest with radiation towards her neck. Had some heartburn yesterday. Also states it radiates somewhat towards the shoulder as well. States it comes and goes with no known palliative or provocative factors. No other acute complaints. Is a history of asthma, fibromyalgia, diabetes, anxiety. States she is uncertain what is causing it. No cardiac history. Presents for further evaluation. Patient does a substantial family history of cardiac disease. - Related Data Home Medications Medication Instructions Recorded Confirmed lamoTRIgine [LaMICtal] 200 mg PO QAM 08/11/14 11/24/23 lisinopriL [Lisinopril] 5 mg PO DAILY 09/05/15 11/24/23 Albuterol Sulfate [Proair Hfa] 1 - 2 puff INHALATION RT-Q6H PRN 10/15/15 11/24/23 Cyclobenzaprine [Flexeril] 10 mg PO HS 03/13/18 11/24/23 ARIPiprazole [Abilify] 7.5 mg PO DAILY 11/24/23 11/24/23 Furosemide [Lasix] 20 mg PO DAILY PRN 11/24/23 11/24/23 Humira (Unknown Dose) 1 dose SQ Q14D 11/24/23 11/24/23 Metoprolol Tartrate [Lopressor] 50 mg PO BID 11/24/23 11/24/23 Norethindrone [Gabbi] 0.35 mg PO DAILY 11/24/23 11/24/23 Pyridium (Unknown Dose) 1 tab PO DIRECTED 11/24/23 11/24/23 traZODone HCL [Desyrel] 50 mg PO HS 11/24/23 11/24/23 Allergies Allergy/AdvReac Type Severity Reaction Status Date / Time Penicillins Allergy Rash/Hives Verified 11/24/23 13:18 Sulfa (Sulfonamide Allergy Rash/Hives Verified 11/24/23 13:18 Antibiotics) metformin AdvReac Severe Nausea & Verified 11/24/23 13:18 Vomiting & Diarrhea bacitracin [From Cortisporin] AdvReac perforated Verified 11/24/23 13:18 eardrum bacitracin zinc AdvReac perforated Verified 11/24/23 13:18 [From Cortisporin] eardrum hydrocortisone AdvReac perforated Verified 11/24/23 13:18 [From Cortisporin] eardrum neomycin [From Cortisporin] AdvReac perforated Verified 11/24/23 13:18 eardrum neomycin sulfate AdvReac perforated Verified 11/24/23 13:18 [From Cortisporin] eardrum polymyxin B AdvReac perforated Verified 11/24/23 13:18 [From Cortisporin] eardrum polymyxin B sulfate AdvReac perforated Verified 11/24/23 13:18 [From Cortisporin] eardrum Review of Systems ROS Statement: Those systems with pertinent positive or pertinent negative responses have been documented in the HPI. Review of Systems: CONST: Denies fever EYES: Denies blurry vision ENT: Denies nasal congestion C/V: Denies Chest pain RESP: Denies shortness of breath GI: Denies abdominal pain : Denies dysuria SKIN: Denies rash. MSK: Denies joint pain. NEURO: Denies headache ROS Other: All systems not noted in ROS Statement are negative. Past Medical History Past Medical History: Asthma, Diabetes Mellitus, Fibromyalgia, GERD/Reflux, H ypertension, Sleep Apnea/CPAP/BIPAP Additional Past Medical History / Comment(s): uses CPAP, hiatal hernia, gout,, states , checks blood sugar occasionally, watches diet, migraines, anklying spondolisis History of Any Multi-Drug Resistant Organisms: ESBL Date of last positivie culture/infection: 03/13/18 MDRO Source:: ESBL URINE Past Surgical History: Back Surgery, Section, Cholecystectomy, Tonsillectomy Additional Past Surgical History / Comment(s): gastric surg- eli Past Anesthesia/Blood Transfusion Reactions: No Reported Reaction Past Psychological History: Anxiety, Bipolar Smoking Status: Never smoker Past Alcohol Use History: None Reported Past Drug Use History: Marijuana - Past Family History Father Family Medical History: Coronary Artery Disease (CAD), Diabetes Mellitus Mother Family Medical History: No Reported History General Exam - General Exam Comments Initial Comments: General: Appears in no acute distress. HEAD: Normal with no signs of head trauma. EYES: PERRLA, EOMI, conjunctiva normal, no discharge. ENT: Hearing grossly intact, normal oropharynx. RESPIRATORY: Clear breath sounds bilaterally. No wheezes, rales, or rhonchi. C/V: Regular rate and rhythm. S1 and S2 auscultated, no edema, peripheral pulses 2+ and intact throughout ABD: Abd is soft, nontender, nondistended EXT: Normal range of motion, no obvious deformity SKIN: No rashes or lesions observed on exposed skin. NEURO: Alert and oriented x 4. Cranial nerves II-XII intact. No focal sensory or strength deficits. Limitations: no limitations Course Vital Signs 11/24/23 11/24/23 11/24/23 11:22 11:35 12:11 Temperature 98.4 F Pulse Rate 108 H Pulse Rate [ 106 H Stud Master/Mistress ] Respiratory 18 Rate Blood Pressure 160/86 166/74 O2 Sat by Pulse 100 Oximetry 11/24/23 14:09 Temperature Pulse Rate 99 Pulse Rate [ Stud Master/Mistress ] Respiratory 18 Rate Blood Pressure 141/94 O2 Sat by Pulse 99 Oximetry Medical Decision Making - Medical Decision Making Was pt. sent in by a medical professional or institution (, PA, PIPE BUFFER, urgent care, hospital, or long-term...) When possible be specific @ -No Did you speak to anyone other than the patient for history (EMS, parent, family, police, friend...)? What history was obtained from this source @ -No Did you review nursing and triage notes (agree or disagree)? Why? @ -I reviewed and agree with nursing and triage notes Were old charts reviewed (outside hosp., previous admission, EMS record, old EKG, old radiological studies, urgent care reports/EKG's, long-term records)? Report findings @ -Compared with old EKGs from August 2014 with no significant obvious changes. Differential Diagnosis (chest pain, altered mental status, abdominal pain women, abdominal pain men, vaginal bleeding, weakness, fever, dyspnea, syncope, headache, dizziness, GI bleed, back pain, seizure, CVA, palpatations, mental health, musculoskeletal)? @ -Differential Chest Pain: Stable Angina, Unstable Angina, STEMI, NSTEMI Aortic Dissection, Pneumothorax, Musculoskeletal, Esophageal Spasm GERD, Cholecystitis, Pancreatitis, Zoster, this is not meant to be an all-inclusive list. EKG interpreted by me (3pts min.). @ -As above X-rays interpreted by me (1pt min.). @ -Chest x-ray reveals no obvious acute cardiopulmonary process. CT interpreted by me (1pt min.). @ -None done U/S interpreted by me (1pt. min.). @ -None done What testing was considered but not performed or refused? (CT, X-rays, U/S, labs)? Why? @ -None What meds were considered but not given or refused? Why? @ -None Did you discuss the management of the patient with other professionals (professionals i.e. Dr., PA, PIPE BUFFER, lab, RT, psych nurse, social science teacher, appraiser oil and water, teacher, credit compliance officer, case technician)? Give summary @ -Discussed with Dr. Dalton of [facility] who accepted the admission. Was smoking cessation discussed for >3mins.? @ -No Was critical care preformed (if so, how long)? @ -No Were there social determinants of health that impacted care today? How? (Homelessness, low income, unemployed, alcoholism, drug addiction, transportation, low edu. Level, literacy, decrease access to med. care, [place] [facility], rehab)? @ -No Was there de-escalation of care discussed even if they declined (Discuss DNR or withdrawal of care, Hospice)? DNR status @ -No What co-morbidities impacted this encounter? (DM, HTN, Smoking, COPD, CAD, Cancer, CVA, ARF, Chemo, Hep., AIDS, mental health diagnosis, sleep apnea, morbid obesity)? @ -None Was patient admitted / discharged? Hospital course, mention meds given and route, prescriptions, significant lab abnormalities, going to OR and other pertinent info. @ -Patient presents with chest pain. Has been ongoing since this morning. Seems worse, and has had it previously. No known cardiac disease however does have a family history consistent with cardiac disease as well as other risk factors. Vital signs within acceptable limits. Will administer Ativan as she currently does not have the chest pain to see if that keeps it away. She was in agreement this plan. Patient will be given aspirin. Will obtain cardiopulmonary workup. Vital signs within acceptable limits. EKG shows no signs of acute ischemia. Patient's laboratory studies remarkable for D-dimer within acceptable limits as well as an undetectable troponin. Chest x-ray shows no obvious acute cardiopulmonary process. I spoke with the patient and chest pain did come back briefly. She was given a nitro which did you limited to the patient's chest pain and Nitropaste was applied. Patient's heart score is moderate at 4. I did recommend admission. She was in agreement this plan. Cardiology consulted. Echo ordered. I spoke with [facility] Dr. Dalton who accepted the admission. Undiagnosed new problem with uncertain prognosis? @ -No Drug Therapy requiring intensive monitoring for toxicity (Heparin, Nitro, Insulin, Cardizem)? @ -No Were any procedures done? @ -No Diagnosis/symptom? @ -Chest pain Acute, or Chronic, or Acute on Chronic? @ -Acute Uncomplicated (without systemic symptoms) or Complicated (systemic symptoms)? @ -Complicated Side effects of treatment? @ -No Exacerbation, Progression, or Severe Exacerbation? @ -No Poses a threat to life or bodily function? How? (Chest pain, [place], [place], pneumonia, PE, COPD, DKA, ARF, appy, cholecystitis, CVA, Diverticulitis, Homicidal, Suicidal, threat to staff... and all critical care pts) @ -Possibly, yes - Lab Data Result diagrams: 11/24/23 11:42 11/24/23 11:42 Lab Results 11/24/23 11/24/23 11/24/23 Range/Units 11:42 11:42 11:42 WBC 8.4 (3.8-10.6) k/uL RBC 4.63 (3.80-5.40) m/uL Hgb 13.4 (11.4-16.0) gm/dL Hct 41.3 (34.0-46.0) % MCV 89.2 (80.0-100.0) fL MCH 28.9 (25.0-35.0) pg MCHC 32.4 (31.0-37.0) g/dL RDW 14.2 (11.5-15.5) % Plt Count 276 (150-450) k/uL MPV 8.0 Neutrophils % 65 % Lymphocytes % 22 % Monocytes % 6 % Eosinophils % 3 % Basophils % 1 % Neutrophils # 5.5 (1.3-7.7) k/uL Lymphocytes # 1.9 (1.0-4.8) k/uL Monocytes # 0.5 (0-1.0) k/uL Eosinophils # 0.3 (0-0.7) k/uL Basophils # 0.1 (0-0.2) k/uL PT 10.2 (10.0-12.5) sec INR 0.9 (<1.2) APTT 24.4 (22.0-30.0) sec D-Dimer (<0.60) mg/L FEU Sodium 141 (137-145) mmol/L Potassium 4.8 (3.5-5.1) mmol/L Chloride 105 (98-107) mmol/L Carbon Dioxide 24 (22-30) mmol/L Anion Gap 12 mmol/L BUN 13 (7-17) mg/dL Creatinine 0.84 (0.52-1.04) mg/dL Est GFR (CKD-EPI)AfAm >90 (>60 ml/min/1.73 sqM) Est GFR (CKD-EPI)NonAf 81 (>60 ml/min/1.73 sqM) Glucose 167 H (74-99) mg/dL Calcium 10.5 H (8.4-10.2) mg/dL Magnesium 1.6 (1.6-2.3) mg/dL Total Bilirubin 0.9 (0.2-1.3) mg/dL AST 29 (14-36) U/L ALT 26 (4-34) U/L Alkaline Phosphatase 69 (38-126) U/L Troponin I (0.000-0.034) ng/mL NT-Pro-B Natriuret Pep 27 pg/mL Total Protein 7.6 (6.3-8.2) g/dL Albumin 4.9 (3.5-5.0) g/dL Urine Color Urine Appearance (Clear) Urine pH (5.0-8.0) Ur Specific [place] (1.001-1.035) Urine Protein (Negative) Urine Glucose (UA) (Negative) Urine Ketones (Negative) Urine Blood (Negative) Urine Nitrite (Negative) Urine Bilirubin (Negative) Urine Urobilinogen (<2.0) mg/dL Ur Leukocyte Esterase (Negative) 11/24/23 11/24/23 11/24/23 Range/Units 11:42 11:42 12:47 WBC (3.8-10.6) k/uL RBC (3.80-5.40) m/uL Hgb (11.4-16.0) gm/dL Hct (34.0-46.0) % MCV (80.0-100.0) fL MCH (25.0-35.0) pg MCHC (31.0-37.0) g/dL RDW (11.5-15.5) % Plt Count (150-450) k/uL MPV Neutrophils % % Lymphocytes % % Monocytes % % Eosinophils % % Basophils % % Neutrophils # (1.3-7.7) k/uL Lymphocytes # (1.0-4.8) k/uL Monocytes # (0-1.0) k/uL Eosinophils # (0-0.7) k/uL Basophils # (0-0.2) k/uL PT (10.0-12.5) sec INR (<1.2) APTT (22.0-30.0) sec D-Dimer 0.25 (<0.60) mg/L FEU Sodium (137-145) mmol/L Potassium (3.5-5.1) mmol/L Chloride (98-107) mmol/L Carbon Dioxide (22-30) mmol/L Anion Gap mmol/L BUN (7-17) mg/dL Creatinine (0.52-1.04) mg/dL Est GFR (CKD-EPI)AfAm (>60 ml/min/1.73 sqM) Est GFR (CKD-EPI)NonAf (>60 ml/min/1.73 sqM) Glucose (74-99) mg/dL Calcium (8.4-10.2) mg/dL Magnesium (1.6-2.3) mg/dL Total Bilirubin (0.2-1.3) mg/dL AST (14-36) U/L ALT (4-34) U/L Alkaline Phosphatase (38-126) U/L Troponin I <0.012 (0.000-0.034) ng/mL NT-Pro-B Natriuret Pep pg/mL Total Protein (6.3-8.2) g/dL Albumin (3.5-5.0) g/dL Urine Color Brown Urine Appearance Clear (Clear) Urine pH 6.0 (5.0-8.0) Ur Specific [place] 1.003 (1.001-1.035) Urine Protein Negative (Negative) Urine Glucose (UA) Negative (Negative) Urine Ketones Negative (Negative) Urine Blood Negative (Negative) Urine Nitrite Negative (Negative) Urine Bilirubin Negative (Negative) Urine Urobilinogen <2.0 (<2.0) mg/dL Ur Leukocyte Esterase Negative (Negative) - EKG Data -: EKG Interpreted by Me EKG Comments: 12-lead Electrocardiogram Interpretation Note EKG was reviewed and interpreted by myself. 12-lead ECG performed at 1148 is interpreted by me as revealing normal sinus rhythm at a rate of default value beats per minute. [place] is normal. DE interval is 163 ms, QRS duration is 109 ms, QTc is 397 ms.. There were no ST or T wave abnormalities to suggest myocardial ischemia or injury. R wave progression across the precordium was satisfactory. By my interpretation this EKG is non-diagnostic for acute ischemi a. Disposition Clinical Impression: Chest pain Disposition: ADMITTED IP TO THIS HOSP Condition: Stable Time of Disposition: 14:50
[2023-11-24] MEDS ORDERED: FUROSEMIDE 20 MG TAB PO PRN (15:22)
[2023-11-24] MEDS ORDERED: ALBUTEROL HFA INHALER INHALATION PRN (15:22)
[2023-11-24] MEDS: HEPARIN SODIUM,PORCINE 5,000 UNIT/ML 1 ML VIAL SQ SCH (16:26)
[2023-11-24] MEDS: NITROGLYCERIN OINT 1 INCH/GM PACKET TOPICAL SCH (16:27)
[2023-11-24] MEDS: HUMIRA SQ SCH (16:31)
[2023-11-24] MEDS: ACETAMINOPHEN TAB 500 MG TAB PO STA (18:32)
[2023-11-24] MEDS: CYCLOBENZAPRINE 10 MG TAB PO SCH (21:18)
[2023-11-24] MEDS: METOPROLOL TARTRATE 50 MG TAB PO SCH (21:18)
[2023-11-25] MEDS ORDERED: DEXTROSE 50% SYRINGE 50 ML IVP PRN ×2 (00:29)
--- NOTE | 2023-11-25 00:31 | P.HPIM ---
History of Present Illness H&P Date: 11/24/23 Chief Complaint: Chest pain Patient is a 48-year-old female with a past medical history of hypertension, diabetes type 2, obstructive sleep apnea on CPAP, fibromyalgia, migraine headaches, and plain spondylosis with history of back surgery, anxiety/bipolar disorder and marijuana use presents to ER with complaints of chest pain. Patient states that she started having left upper chest pain around 9:30 AM this morning and felt her heart rate being funky. Pain radiating towards her shoulder. Presents with mild nausea. No episodes of vomiting. No headache or dizziness or lightheadedness. No leg swelling. No recent illnesses. Patient states that she has been having increasing heart rate for the past 3 days. Heart rate went up to 130s and has been taking due to anxiety. Patient was given Ativan initially which did not help her symptoms. She was given nitro sublingual which seemed to help her pain. Patient denies any prior history of heart disease. She was seen by cardiology previously and had echocardiogram done. She was started on metoprolol at that time. Patient states that she has substantial history of cardiac disease in the family. Patient was started on Abilify about a month ago. Chest x-ray showed no acute cardiopulmonary process EKG showed sinus tachycardia with heart rate heart rate. Laboratory data showed WBC 8.4 hemoglobin 14.4 and platelets 276, D-dimer 0.25, sodium 141 potassium 4.8 chloride 105 bicarb is 24 BUN 13 and creatinine 0.84 and blood sugar 167 and calcium 10.5 Magnesium 1.6 proBNP 27 and troponin x 3 negative Urinalysis is negative for infection. Review of Systems Constitutional: Patient denies any fever or chills . No generalized weakness or weight loss. Abdomen: Patient denied nausea vomiting and diarrhea and abdominal pain. Cardiovascular: Patient denies any chest pain or short of breath no palpitations. Respiratory: patient denied any cough or sputum production. No shortness of breath Neurologic: Patient denied any numbness or tingling. no headache. Musculoskeletal: Patient denies any complaints of joint swelling or deformity. Skin: Negative Psychiatric: Negative Endocrine: No heat or cold intolerance. No recent weight gain. Genitourinary: No dysuria or hematuria. All other 14 point ROS negative except the above Past Medical History Past Medical History: Asthma, Diabetes Mellitus, Fibromyalgia, GERD/Reflux, Hypertension, Sleep Apnea/CPAP/BIPAP Additional Past Medical History / Comment(s): uses CPAP, hiatal hernia, gout,, states , checks blood sugar occasionally, watches diet, migraines, anklying sp ondolisis History of Any Multi-Drug Resistant Organisms: ESBL Date of last positivie culture/infection: 03/13/18 MDRO Source:: ESBL URINE Past Surgical History: Back Surgery, Section, Cholecystectomy, Tonsillectomy Additional Past Surgical History / Comment(s): gastric surg- eli Past Anesthesia/Blood Transfusion Reactions: No Reported Reaction Past Psychological History: Anxiety, Bipolar Smoking Status: Never smoker Past Alcohol Use History: None Reported Past Drug Use History: Marijuana - Past Family History Father Family Medical History: Coronary Artery Disease (CAD), Diabetes Mellitus Mother Family Medical History: No Reported History Medications and Allergies Home Medications Medication Instructions Recorded Confirmed Type lamoTRIgine [LaMICtal] 200 mg PO QAM 08/11/14 11/24/23 History lisinopriL [Lisinopril] 5 mg PO DAILY 09/05/15 11/24/23 History Albuterol Sulfate [Proair Hfa] 1 - 2 puff INHALATION RT-Q6H PRN 10/15/15 11/24/23 History Cyclobenzaprine [Flexeril] 10 mg PO HS 03/13/18 11/24/23 History ARIPiprazole [Abilify] 7.5 mg PO DAILY 11/24/23 11/24/23 History Adalimumab [Humira(Cf) Pen] 40 mg SQ Q14D 11/24/23 11/24/23 History Furosemide [Lasix] 20 mg PO DAILY PRN 11/24/23 11/24/23 History Metoprolol Tartrate [Lopressor] 50 mg PO BID 11/24/23 11/24/23 History Norethindrone [Gabbi] 0.35 mg PO DAILY 11/24/23 11/24/23 History Pyridium (Unknown Dose) 1 tab PO DIRECTED 11/24/23 11/24/23 History traZODone HCL [Desyrel] 50 mg PO HS 11/24/23 11/24/23 History Allergies Allergy/AdvReac Type Severity Reaction Status Date / Time Penicillins Allergy Rash/Hives Verified 11/24/23 13:18 Sulfa (Sulfonamide Allergy Rash/Hives Verified 11/24/23 13:18 Antibiotics) metformin AdvReac Severe Nausea & Verified 11/24/23 13:18 Vomiting & Diarrhea bacitracin [From Cortisporin] AdvReac perforated Verified 11/24/23 13:18 eardrum bacitracin zinc AdvReac perforated Verified 11/24/23 13:18 [From Cortisporin] eardrum hydrocortisone AdvReac perforated Verified 11/24/23 13:18 [From Cortisporin] eardrum neomycin [From Cortisporin] AdvReac perforated Verified 11/24/23 13:18 eardrum neomycin sulfate AdvReac perforated Verified 11/24/23 13:18 [From Cortisporin] eardrum polymyxin B AdvReac perforated Verified 11/24/23 13:18 [From Cortisporin] eardrum polymyxin B sulfate AdvReac perforated Verified 11/24/23 13:18 [From Cortisporin] eardrum Physical Exam Vitals: Vital Signs Temp Pulse Pulse Pulse Resp BP BP 11/24/23 19:32 98.6 F 95 16 154/77 11/24/23 18:34 98.1 F 96 16 154/87 11/24/23 17:41 84 18 137/74 11/24/23 16:32 86 18 137/79 11/24/23 14:09 99 18 141/94 11/24/23 12:11 166/74 11/24/23 11:35 106 H 11/24/23 11:22 98.4 F 108 H 18 160/86 Pulse Ox 11/24/23 19:32 100 11/24/23 18:34 100 11/24/23 17:41 96 11/24/23 16:32 11/24/23 14:09 99 11/24/23 12:11 11/24/23 11:35 11/24/23 11:22 100 Intake and Output 11/24/23 11/24/23 11/24/23 06:59 14:59 22:59 Other: Weight 160.572 kg PHYSICAL EXAMINATION: Patient is lying in the bed comfortably, no acute distress, awake alert and oriented. Morbidly obese.. HEENT: Normocephalic. Neck is supple. Pupils reactive. Nostrils clear. Oral cavity is moist. Neck reveals no JVD, carotid bruits, or thyromegaly. CHEST EXAMINATION: Trachea is central. Symmetrical expansion. Lung pascal clear to auscultation and percussion. CARDIAC: Normal S1, S2 with no gallops. No murmurs ABDOMEN: Soft. Bowel sounds normal. No organomegaly. No abdominal bruits. Extremities: reveal no edema. No clubbing or cyanosis Neurologically awake, alert, oriented x3 with well-coordinated movements. No focal deficits noted Skin: No rash or skin lesions. Psychiatric: Coperative. Nonsuicidal, anxious. Musculoskeletal: No joint swelling or deformity. Normal range of motion. Results CBC & Chem 7: 11/24/23 11:42 11/24/23 11:42 Labs: Abnormal Lab Results - Last 24 Hours (Table) 11/24/23 Range/Units 11:42 Glucose 167 H (74-99) mg/dL Calcium 10.5 H (8.4-10.2) mg/dL Thrombosis Risk Factor Assmnt - DVT/VTE Prophylaxis DVT/VTE Prophylaxis: Pharmacologic Prophylaxis ordered Assessment and Plan Assessment: Atypical chest pain. Rule out ACS. Fibromyalgia and generalized anxiety. Hypertension Hyperglycemia is uncontrolled diabetes type 2 Asthma Anxiety/bipolar disorder Obstructive sleep apnea on CPAP Marijuana use Morbid obesity BMI 55.4. DVT prophylaxis heparin subcu Plan: Patient will be continued on telemonitoring. Serial EKG and troponin x 3 negative. Follow-up TSH level. Continue home medications including metoprolol and pain management. Cardiology was consulted for evaluation. Replace electrolytes. Continue with insulin sliding scale. Better blood sugar control. Prognosis is guarded. Discussed with the patient and her at bedside in detail. Time with Patient: Greater than 30
[2023-11-25] MEDS: MAGNESIUM SULFATE-D5W PMX 1 GM in DEXTROSE/WATER 1 100ML.BAG IVPB ONE (00:59)
[2023-11-25 03:49] LABS: Basophils # (A) 0.1 k/uL (0-0.2); Basophils % (A) 1 %; Eosinophils # (A) 0.4 k/uL (0-0.7); Eosinophils % (A) 4 %; HCT 38.3 % (34.0-46.0); HGB 12.8 gm/dL (11.4-16.0); Lymphocytes # (A) 2.8 k/uL (1.0-4.8); Lymphocytes % (A) 27 %; MCH 29.5 pg (25.0-35.0); MCHC 33.3 g/dL (31.0-37.0); MCV 88.6 fL (80.0-100.0); Mean Platelet Volume 8.7; Monocytes # (A) 0.8 k/uL (0-1.0); Monocytes % (A) 7 %; Neutrophils # (A) 6.2 k/uL (1.3-7.7); Neutrophils % (A) 60 %; Platelet Count 254 k/uL (150-450); RBC 4.33 m/uL (3.80-5.40); WBC 10.4 k/uL (3.8-10.6)
[2023-11-25 06:42] LABS: Glucose,Whole Blood 143 mg/dL (70-110)
[2023-11-25] MEDS: INSULIN ASPART (NovoLOG) 100 UNIT/ML VIAL SQ SCH (07:03)
[2023-11-25 07:22] VITALS: BP 143/82; PULSE 101; RESP 16; TEMP 98.3
[2023-11-25 08:47] LABS: ALT 26 U/L (4-34); AST 27 U/L (14-36); African American GFR (CKD) >90 (>60 ml/min/1.73 sqM); Albumin 4.4 g/dL (3.5-5.0); Albumin/Globulin Ratio 1.8; Alkaline Phosphatase 62 U/L (38-126); Anion Gap 10 mmol/L; Blood Urea Nitrogen 12 mg/dL (7-17); Calcium 9.6 mg/dL (8.4-10.2); Carbon Dioxide 25 mmol/L (22-30); Chloride 105 mmol/L (98-107); Globulin 2.5 g/dL; Glucose 162 mg/dL (74-99); Non-African American GFR(CKD) >90 (>60 ml/min/1.73 sqM); Potassium 3.8 mmol/L (3.5-5.1); Sodium 140 mmol/L (137-145); Total Bilirubin 1.1 mg/dL (0.2-1.3); Total Protein 6.9 g/dL (6.3-8.2)
[2023-11-25] MEDS: lamoTRIgine 100 MG TAB PO SCH (09:51)
[2023-11-25] MEDS: lisinopriL 5 MG TAB PO SCH (09:51)
[2023-11-25] MEDS: ARIPiprazole 5 MG TAB PO SCH (09:51)
--- NOTE | 2023-11-25 10:08 | CA ---
Transthoracic Echo Report Name: Rosalie Reyes Age: 48 Gender: F : 1975 Exam Date: 11/25/2023 07:29 Exam Location: [facility] Ht (in): 67 Wt (lb): 354 Ordering Physician: Jewel Donovan MD Attending/Referring Phys: [place] Manager Margarita Bowers RDCS Procedure CPT: Indications: Chest Pain Cardiac Hx: Technical Quality: Technically difficult study Contrast 1: Definity Total Dose (mL): 2 Contrast 2: Total Dose (mL): MEASUREMENTS (Male / Female) Normal Values 2D ECHO LV Diastolic Diameter PLAX 3.9 cm 4.2 - 5.9 / 3.9 - 5.3 cm LV Systolic Diameter PLAX 1.7 cm IVS Diastolic Thickness 1.4 cm 0.6 - 1.0 / 0.6 - 0.9 cm LVPW Diastolic Thickness 1.3 cm 0.6 - 1.0 / 0.6 - 0.9 cm LV Relative Wall Thickness 0.7 RV Internal Dim ED PLAX 2.9 cm LA Volume 42.8 cm??? 18 - 58 / 22 - 52 cm??? LA Volume Index 15.0 cm???/m??? 16 - 28 cm???/m??? M-MODE Aortic Root Diameter MM 3.0 cm LA Systolic Diameter MM 4.1 cm LA Ao Ratio MM 1.4 AV Cusp Separation MM 2.4 cm DOPPLER AV Peak Velocity 138.8 cm/s AV Peak Gradient 7.7 mmHg AV Mean Velocity 100.8 cm/s AV Mean Gradient 4.3 mmHg AV Velocity Time Integral 23.8 cm LVOT Peak Velocity 93.5 cm/s LVOT Peak Gradient 3.5 mmHg LVOT Velocity Time Integral 17.7 cm MV Area PHT 3.9 cm??? Mitral E Point Velocity 46.8 cm/s Mitral A Point Velocity 65.5 cm/s Mitral E to A Ratio 0.7 MV Deceleration Time 193.6 ms FINDINGS Left Ventricle Moderate concentric left ventricular hypertrophy. Left ventricular cavity size normal. Normal left ventricular systolic function with no obvious regional wall motion abnormalities. Left ventricular ejection fraction is estimated at 55-60 %. Grade 1 diastolic dysfunction. Right Ventricle Normal right ventricular size and function. Right ventricular systolic pressure within normal limits. Right Atrium Normal right atrial size. Left Atrium Normal left atrial size. Mitral Valve Structurally normal mitral valve. No mitral stenosis, regurgitation or prolapse. Aortic Valve No aortic valve stenosis or regurgitation. Tricuspid Valve Structurally normal tricuspid valve. Trace to mild tricuspid regurgitation. Pulmonic Valve Structurally normal pulmonic valve. Trace pulmonic regurgitation. Pericardium No pericardial effusion. Aorta Normal size aortic root and proximal ascending aorta. CONCLUSIONS LVH with preserved systolic function Previewed by: Dr. Bret Landaverde MD (Electronically Signed) Final Date: 25 November 2023 10:07
--- NOTE | 2023-11-25 11:22 | P.CRDCN ---
History of Present Illness History of present illness: HISTORY OF PRESENT ILLNESS: This is a 48-year-old female with a past medical history significant for tachycardia, fibromyalgia, hypertension, and anklying spondylosis. Patient used to follow in the office with Dr. Olivia. We have been asked to see the patient in consultation for chest pain. Patient examined at the bedside. Patient states over the past 4 to 5 days she has noticed her heart rate has been in the 120s. She states that she has been working with a therapist and has been tracking her heart rate and this is how she noticed her heart rate had been high. She states yesterday she woke up and did have some pain on the upper left side of her chest which lasted until she got here. At the time of examination she denies any chest pain or pressure. Telemetry reveals sinus mechanism. DIAGNOSTICS: - EKG reveals sinus tachycardia with nonspecific ST-T wave changes. No signs of acute ischemia. - Chest xray negative for acute process - Laboratory data: Troponin negative x 3 - Current home cardiac medications include metoprolol tartrate 50 mg twice a day, lisinopril 5 mg daily, Lasix 20 mg daily as needed - Echocardiogram obtained revealing ejection fraction 55 to 60%, trace to mild TR, LVH REVIEW OF SYSTEMS: At the time of my exam: CONSTITUTIONAL: Denies fever or chills. HEENT: Denies blurred vision, vision changes, or eye pain. Denies hemoptysis CARDIOVASCULAR: Denies chest pain. Denies orthopnea. Denies PND. Denies palpitations RESPIRATORY: Denies shortness of breath. GASTROINTESTINAL: Denies abdominal pain. Denies nausea or vomiting. HEMATOLOGIC: Denies bleeding disorders. GENITOURINARY: Denies any blood in urine. SKIN: Denies pruitis. Denies rash. PHYSICAL EXAM: VITAL SIGNS: Reviewed. GENERAL: Well-developed in no acute distress. HEENT: Head is normocephalic. Pupils are equal, round. Sclerae anicteric. Mucous membranes of the mouth are moist. Neck supple. No JVD or thyromegaly LUNGS: Respirations even and unlabored. Lungs essentially clear to auscultation bilaterally. HEART: Regular rate and rhythm. S1 and S2 heard. ABDOMEN: Soft. Nondistended. Nontender. EXTREMITIES: Normal range of motion. No clubbing or cyanosis. Peripheral pulse s intact. No lower extremity edema NEUROLOGIC: Awake and alert. Oriented x 3. ASSESSMENT: Chest pain, troponin negative x 3, acute coronary syndrome ruled out Sinus tachycardia History of hypertension History of fibromyalgia History of anklying spondylosis Morbid obesity: BMI 55.4 PLAN: An acute coronary event has been ruled out 2D echo obtained and reviewed Resume home cardiac medications Patient instructed that she may take an extra metoprolol at home when she is experiencing palpitations. Patient verbalized understanding No further inpatient recommendations from a cardiac standpoint Patient may be discharged home today from a cardiology perspective We will sign off. Please reconsult if needed. Nurse practitioner note has been reviewed by physician. Signing provider agrees with the documented findings, assessment, and plan of care documented by CYLINDER PRESS OPERATOR as a scribe. Past Medical History Past Medical History: Asthma, Diabetes Mellitus, Fibromyalgia, GERD/Reflux, Hypertension, Sleep Apnea/CPAP/BIPAP Additional Past Medical History / Comment(s): uses CPAP, hiatal hernia, gout,, states , checks blood sugar occasionally, watches diet, migraines, anklying spondolisis History of Any Multi-Drug Resistant Organisms: ESBL Date of last positivie culture/infection: 03/13/18 MDRO Source:: ESBL URINE Past Surgical History: Back Surgery, Section, Cholecystectomy, Tonsillectomy Additional Past Surgical History / Comment(s): gastric surg- eli Past Anesthesia/Blood Transfusion Reactions: No Reported Reaction Past Psychological History: Anxiety, Bipolar Smoking Status: Never smoker Past Alcohol Use History: None Reported Past Drug Use History: Marijuana - Past Family History Father Family Medical History: Coronary Artery Disease (CAD), Diabetes Mellitus Mother Family Medical History: No Reported History Medications and Allergies Home Medications Medication Instructions Recorded Confirmed Type lamoTRIgine [LaMICtal] 200 mg PO QAM 08/11/14 11/24/23 History lisinopriL [Lisinopril] 5 mg PO DAILY 09/05/15 11/24/23 History Albuterol Sulfate [Proair Hfa] 1 - 2 puff INHALATION RT-Q6H PRN 10/15/15 11/24/23 History Cyclobenzaprine [Flexeril] 10 mg PO HS 03/13/18 11/24/23 History ARIPiprazole [Abilify] 7.5 mg PO DAILY 11/24/23 11/24/23 History Adalimumab [Humira(Cf) Pen] 40 mg SQ Q14D 11/24/23 11/24/23 History Furosemide [Lasix] 20 mg PO DAILY PRN 11/24/23 11/24/23 History Metoprolol Tartrate [Lopressor] 50 mg PO BID 11/24/23 11/24/23 History Norethindrone [Gabbi] 0.35 mg PO DAILY 11/24/23 11/24/23 History Pyridium (Unknown Dose) 1 tab PO DIRECTED 11/24/23 11/24/23 History traZODone HCL [Desyrel] 50 mg PO HS 11/24/23 11/24/23 History Allergies Allergy/AdvReac Type Severity Reaction Status Date / Time Penicillins Allergy Rash/Hives Verified 11/24/23 13:18 Sulfa (Sulfonamide Allergy Rash/Hives Verified 11/24/23 13:18 Antibiotics) metformin AdvReac Severe Nausea & Verified 11/24/23 13:18 Vomiting & Diarrhea bacitracin [From Cortisporin] AdvReac perforated Verified 11/24/23 13:18 eardrum bacitracin zinc AdvReac perforated Verified 11/24/23 13:18 [From Cortisporin] eardrum hydrocortisone AdvReac perforated Verified 11/24/23 13:18 [From Cortisporin] eardrum neomycin [From Cortisporin] AdvReac perforated Verified 11/24/23 13:18 eardrum neomycin sulfate AdvReac perforated Verified 11/24/23 13:18 [From Cortisporin] eardrum polymyxin B AdvReac perforated Verified 11/24/23 13:18 [From Cortisporin] eardrum polymyxin B sulfate AdvReac perforated Verified 11/24/23 13:18 [From Cortisporin] eardrum Physical Exam Vitals: Vital Signs Temp Pulse Pulse Pulse Resp BP BP 11/25/23 07:00 98.3 F 101 H 16 143/82 11/25/23 02:05 98.0 F 85 17 127/75 11/25/23 01:07 98.0 F 90 17 119/66 11/24/23 21:18 95 11/24/23 19:32 98.6 F 95 16 154/77 11/24/23 18:34 98.1 F 96 16 154/87 11/24/23 17:41 84 18 137/74 11/24/23 16:32 86 18 137/79 11/24/23 14:09 99 18 141/94 11/24/23 12:11 166/74 11/24/23 11:35 106 H 11/24/23 11:22 98.4 F 108 H 18 160/86 Pulse Ox 11/25/23 07:00 100 11/25/23 02:05 98 11/25/23 01:07 11/24/23 21:18 11/24/23 19:32 100 11/24/23 18:34 100 11/24/23 17:41 96 11/24/23 16:32 11/24/23 14:09 99 11/24/23 12:11 11/24/23 11:35 11/24/23 11:22 100 Intake and Output 11/24/23 11/25/23 11/25/23 22:59 06:59 14:59 Other: Voiding Method Toilet # Voids 2 Weight 160.572 kg Results 11/25/23 03:05 11/25/23 06:54 Cardiac Enzymes 11/24/23 11/24/23 11/24/23 Range/Units 11:42 11:42 15:43 AST 29 (14-36) U/L Troponin I <0.012 <0.012 (0.000-0.034) ng/mL 11/24/23 Range/Units 18:06 AST (14-36) U/L Troponin I <0.012 (0.000-0.034) ng/mL Coagulation 11/24/23 Range/Units 11:42 PT 10.2 (10.0-12.5) sec APTT 24.4 (22.0-30.0) sec CBC 11/24/23 11/25/23 Range/Units 11:42 03:05 WBC 8.4 10.4 (3.8-10.6) k/uL RBC 4.63 4.33 (3.80-5.40) m/uL Hgb 13.4 12.8 (11.4-16.0) gm/dL Hct 41.3 38.3 (34.0-46.0) % Plt Count 276 254 (150-450) k/uL Comprehensive Metabolic Panel 11/24/23 Range/Units 11:42 Sodium 141 (137-145) mmol/L Potassium 4.8 (3.5-5.1) mmol/L Chloride 105 (98-107) mmol/L Carbon Dioxide 24 (22-30) mmol/L BUN 13 (7-17) mg/dL Creatinine 0.84 (0.52-1.04) mg/dL Glucose 167 H (74-99) mg/dL Calcium 10.5 H (8.4-10.2) mg/dL AST 29 (14-36) U/L ALT 26 (4-34) U/L Alkaline Phosphatase 69 (38-126) U/L Total Protein 7.6 (6.3-8.2) g/dL Albumin 4.9 (3.5-5.0) g/dL Current Medications Generic Name Dose Route Start Last Admin Trade Name Freq PRN Reason Stop Dose Admin Albuterol Sulfate 1 puff 11/24/23 15:22 Albuterol Hfa Inhaler INHALATION RT-Q6H PRN Shortness Of Breath Aripiprazole 7.5 mg 11/25/23 09:00 Aripiprazole 5 Mg Tab PO DAILY [facility] Cyclobenzaprine HCl 10 mg 11/24/23 21:00 11/24/23 21:18 Cyclobenzaprine 10 Mg Tab PO 10 mg HS FRANNY Administration Dextrose/Water 25 ml 11/25/23 00:29 Dextrose 50% Syringe 50 Ml IVP PER PROTOCOL PRN Hypoglycemia Protocol Dextrose/Water 50 ml 11/25/23 00:29 Dextrose 50% Syringe 50 Ml IVP PER PROTOCOL PRN Hypoglycemia Protocol Furosemide 20 mg 11/24/23 15:22 Furosemide 20 Mg Tab PO DAILY PRN Edema Heparin Sodium (Porcine) 5,000 unit 11/24/23 16:00 11/25/23 00:59 Heparin Sodium,Porcine 5,000 Unit/Ml 1 Ml Vial SQ 5,000 unit Q8HR FRANNY Administration Insulin Aspart 0 unit 11/25/23 07:30 11/25/23 07:03 Insulin Aspart (Novolog) 100 Unit/Ml Vial SQ Not Given ACHS [facility] Protocol Lamotrigine 200 mg 11/25/23 09:00 Lamotrigine 100 Mg Tab PO QAM [facility] Lisinopril 5 mg 11/25/23 09:00 Lisinopril 5 Mg Tab PO DAILY [facility] Metoprolol Tartrate 50 mg 11/24/23 21:00 11/24/23 21:18 Metoprolol Tartrate 50 Mg Tab PO 50 mg BID FRANNY Administration Naloxone HCl 0.2 mg 11/24/23 14:53 Naloxone 0.4 Mg/Ml 1 Ml Vial IV Q2M PRN Opioid Reversal Nitroglycerin 0.5 inch 11/24/23 14:30 11/25/23 02:11 Nitroglycerin Oint 1 Inch/Gm Packet TOPICAL 0.5 inch Q8HR FRANNY Administration Non-Formulary Medication 1 dose 11/24/23 15:30 11/24/23 16:31 Humira (Unknown Dose) SQ Not Given Q14D [facility] Ondansetron HCl 4 mg 11/24/23 14:53 Ondansetron 4 Mg/2 Ml Vial IVP Q8HR PRN Nausea And Vomiting Intake and Output 11/24/23 11/25/23 11/25/23 22:59 06:59 14:59 Other: Voiding Method Toilet # Voids 2 Weight 160.572 kg 11/25/23 03:05 11/24/23 11:42
[2023-11-25 12:08] LABS: Glucose,Whole Blood 250 mg/dL (70-110)
--- NOTE | 2023-11-29 12:25 | P.DS ---
Providers Date of admission: 11/24/23 14:54 Expected date of discharge: 11/25/23 Attending physician: Shyanne Dalton Primary care physician: Dread Greer Hospital Course: Final diagnosis Atypical chest pain. Ruled out ACS. Fibromyalgia and generalized anxiety history not in exacerbation Hypertension Hyperglycemia is uncontrolled diabetes type 2 Asthma Anxiety/bipolar disorder Obstructive sleep apnea on CPAP Marijuana use Morbid obesity BMI 55.4. DVT prophylaxis heparin subcu GI prophy Full code Discharge disposition Patient is being discharged in a stable condition with guarded prognosis to home. Patient will follow-up with Dr. Greer in the outpatient setting upon discharge. Patient is to continue with current medications as prescribed per cardiology and outpatient follow-up with cardiology as scheduled. Total time taken is greater than 35 minutes. Hospital course This is a 48-year-old female who was recently admitted with chest pain, likely atypical evaluated by cardiology. Patient underwent 2D echo and outpatient follow-up with Dr. Landaverde. Patient has been cleared by cardiology. Please refer to cardiology notes for further HPI. Atypical chest pain possibly secondary to any events patient is stable. Currently no reports of chest pain, shortness of breath, or palpitations. Patient is afebrile. No reports of nausea or vomiting and patient is tolerating diet. Patient will be discharged home today. Guarded prognosis given significant comorbidities and high risk for readmissions. Physical exam: Gen: This is a 48-year-old female who is awake, alert and oriented x 3, well- developed, well-nourished, elderly appearing, morbidly obese HEENT: Head is atraumatic, normocephalic. Pupils equal, round. Sclerae is anicteric. NECK: Supple. No JVD. No lymphadenopathy. No thyromegaly. LUNGS: Diminished breath sounds bilaterally otherwise clear to auscultation. No wheezes or rhonchi. No intercostal retractions. HEART: S1, muffled S2 muffled ABDOMEN: Soft. Obese bowel sounds are present. No masses. No tenderness. EXTREMITIES: No pedal edema. No calf tenderness. NEUROLOGICAL: Patient is awake, alert and oriented x3. Cranial nerves 2 through 12 are grossly intact. Please refer to medication reconciliation sheet for a list of medications. The impression and plan of care has been dictated by Lotus Nix, Nurse Practitioner as directed. Dr. Krystle MD I have performed a history and examination and MDM of this patient, discussed the same with the dictator, and agree with the dictator's assessment and plan as written ,documented as a scribe. Based on total visit time, I have performed more than 50% of the visit. Patient Condition at Discharge: Stable Plan - Discharge Summary Discharge Rx Participant: No New Discharge Prescriptions: New Humira (Unknown Dose) 1 dose SQ Q14D Continue lamoTRIgine [LaMICtal] 200 mg PO QAM lisinopriL [Lisinopril] 5 mg PO DAILY Albuterol Sulfate [Proair Hfa] 1 - 2 puff INHALATION RT-Q6H PRN PRN Reason: Shortness Of Breath Cyclobenzaprine [Flexeril] 10 mg PO HS Furosemide [Lasix] 20 mg PO DAILY PRN PRN Reason: Edema Pyridium (Unknown Dose) 1 tab PO DIRECTED Metoprolol Tartrate [Lopressor] 50 mg PO BID traZODone HCL [Desyrel] 50 mg PO HS ARIPiprazole [Abilify] 7.5 mg PO DAILY Norethindrone [Gabbi] 0.35 mg PO DAILY Adalimumab [Humira(Cf) Pen] 40 mg SQ Q14D Discharge Medication List lamoTRIgine [LaMICtal] 200 mg PO QAM 08/11/14 [History] lisinopriL [Lisinopril] 5 mg PO DAILY 09/05/15 [History] Albuterol Sulfate [Proair Hfa] 1 - 2 puff INHALATION RT-Q6H PRN 10/15/15 [History] Cyclobenzaprine [Flexeril] 10 mg PO HS 03/13/18 [History] ARIPiprazole [Abilify] 7.5 mg PO DAILY 11/24/23 [History] Adalimumab [Humira(Cf) Pen] 40 mg SQ Q14D 11/24/23 [History] Furosemide [Lasix] 20 mg PO DAILY PRN 11/24/23 [History] Metoprolol Tartrate [Lopressor] 50 mg PO BID 11/24/23 [History] Norethindrone [Gabbi] 0.35 mg PO DAILY 11/24/23 [History] Pyridium (Unknown Dose) 1 tab PO DIRECTED 11/24/23 [History] traZODone HCL [Desyrel] 50 mg PO HS 11/24/23 [History] Humira (Unknown Dose) 1 dose SQ Q14D 11/25/23 [Rx] Follow up Appointment(s)/Referral(s): Bret Landaverde MD [STAFF PHYSICIAN] - 1 Week Dread Greer MD [Primary Care Provider] - 1-2 days Patient Instructions/Handouts: Tachycardia (GEN) Activity/Diet/Wound Care/Special Instructions: Activity limited until follow-up Follow-up with primary care provider on discharge Follow-up with cardiology outpatient Follow-up with your entry level electrician outpatient Discharge Disposition: HOME SELF-CARE
== END 2023-11-25 13:50 | disposition home or self-care (01) ==
LOC: EC 11:15 → 6NMEDSUR 14:54
PROVIDERS: ADMIT Internal Medicine; ATTEND Internal Medicine
DX: R07.89 Other chest pain (principal); J45.909 Unspecified asthma, uncomplicated; E11.65 Type 2 diabetes mellitus with hyperglycemia; F41.1 Generalized anxiety disorder; K21.9 Gastro-esophageal reflux disease without esophagitis; I10 Essential (primary) hypertension; G47.33 Obstructive sleep apnea (adult) (pediatric); F31.9 Bipolar disorder, unspecified; R00.0 Tachycardia, unspecified; M79.7 Fibromyalgia; M47.9 Spondylosis, unspecified; F12.90 Cannabis use, unspecified, uncomplicated; E66.01 Morbid (severe) obesity due to excess calories; Z68.43 Body mass index [BMI] 50.0-59.9, adult; Z79.899 Other long term (current) drug therapy; Z88.0 Allergy status to penicillin; Z88.2 Allergy status to sulfonamides; Z82.49 Family history of ischemic heart disease and other diseases of the circulatory system
CPT/HCPCS: 96361 ×3; 96365; 96372 ×2; 96375; 99285; 36415; 94760; 93005; 85379; 83880; 80053 ×2; 84443; 83735; 84484; 85025 ×2; 85610; 85730; 81003; 71046; G0378 ×2; C8929; J2060; J1644 ×2; Q9957; J3475; 93306

== ENCOUNTER → 2024-09-14 | Outpatient (CLI) | payer MEDICARE ==
--- NOTE | 2024-09-14 13:10 | MM ---
Reason for Exam: Screening (asymptomatic). Last mammogram was performed 2 year(s) and 0 month(s) ago. Patient History: Menarche at age 11. First Full-Term at age 25. Perimenopausal. Currently using Hormonal Contraceptives, starting at age 17. Maternal grandmother had breast cancer, age 76. Risk Values: Chacha 5 year model risk: 1.1%. NCI Lifetime model risk: 9.9%. Prior Study Comparison: 11/15/2014 Screening Mammogram, [facility] . 03/15/2021 Bilateral Screening Mammogram, [facility]. 09/24/2022 Bilateral MG 3D screening mammo w/cad, [facility]. Tissue Density: There are scattered areas of fibroglandular density. Findings: Analyzed By CAD. Right breast: There is no suspicious group of microcalcifications or new suspicious mass. Benign-appearing calcifications right breast. Left breast: There is no suspicious group of microcalcifications or new suspicious mass. Benign-appearing calcifications left breast. Overall Assessment: Benign, BI-RAD 2 Management: Screening Mammogram of both breasts in [address] [facility] will attempt to contact patient to return for supplemental views and ultrasound if indicated. Patient should continue monthly self-breast exams. A clinical breast exam by your physician is recommended on an annual basis. This exam should not preclude additional follow-up of suspicious palpable abnormalities. Note on Chacha scores and lifetime risk: 1. A Chacha score greater than 3% is considered moderate risk. If this is the case, consider specialist referral to assess eligibility for a risk reducing agent. 2. If overall lifetime risk for the development of breast cancer is 20% or higher, the patient may qualify for future screening with alternating mammogram and breast MRI. [facility], , 09/14/2024 1:06 PM. Electronically signed and approved by: Carlos Cruz DO
== END | disposition home or self-care (01) ==
LOC: RADMAMWWP 10:37
PROVIDERS: ATTEND Family Medicine
DX: Z12.31 Encounter for screening mammogram for malignant neoplasm of breast (principal); R92.323 Mammographic fibroglandular density, bilateral breasts; R92.1 Mammographic calcification found on diagnostic imaging of breast; Z80.3 Family history of malignant neoplasm of breast; Z92.0 Personal history of contraception
CPT/HCPCS: 77063; 77067